=== PATIENT | female | born 1995 | race Caucasian/White ===

== ENCOUNTER 2019-11-23 09:02 | Outpatient (CLI) | payer OTHER, SELFPAY ==
[2019-11-23 09:43] LABS: Basophils # 0.1 10^3/uL (0.0-0.1); Basophils % 0.9 %; Eosinophils # 0.3 10^3/uL (0.0-0.8); Eosinophils % 5.9 %; Hematocrit 32.9 % (37.0-47.0); Hemoglobin 8.8 g/dL (11.5-15.3); Lymphocytes # 1.6 10^3/uL (0.8-4.8); Mean Corpuscular HGB Conc 26.7 g/dL (30.0-36.0); Mean Corpuscular Hemoglobin 17.2 pg (28.0-34.0); Mean Corpuscular Volume 64.3 fL (81-99); Monocytes # 0.4 10^3/uL (0.2-0.9); Monocytes % 6.5 %; Neutrophils # 3.45 10^3/uL (1.8-7.7); Neutrophils % 59.4 %; Nucleated Red Blood Cells % 0 %; Platelet Count 270 10^3/cmm (130-400); Red Blood Count 5.12 10^6/uL (4.1-5.3); Red Cell Distribution Width 17.9 % (12.1-15.1); White Blood Count 5.8 10^3/uL (4.0-10.0)
[2019-11-23 10:20] LABS: Add RBC Morph Yes; Slide Review Slide Review Perform
[2019-11-23 10:21] LABS: Poikilocytosis 2+
[2019-11-23 10:22] LABS: Anisocytosis 1+; Microcytosis 2+; Ovalocytes 2+; RBC Morph Comp Yes; Tear Drop Cells 1+
[2019-11-23 15:34] LABS: Ferritin 7 ng/mL (15-150); Iron 14 ug/dL (37-145); Total Iron Binding Capacity 348 mcg/dl; Unsaturated Iron Binding 334 ug/dL (112-347)
[2019-11-23 15:50] LABS: Vitamin B12 380 pg/mL (232-1245)
--- NOTE | 2019-11-23 17:43 | ONC CON_ITS ---
Dr. Hinojosa New Patient Note Patient: Salome Melendez Unit #: [id number]: 1995 Dicatated By: Sheldon Hinojosa M.D.Date of Visit: Nov 23, 2019 Onc MED New Patient/Consult Referring Physician: Lolis Ren History of Present Illness: Ms. Salome Melendez, is a 24-year-old female with longstanding history of anemia, as per patient when she was in 11th grade, she was diagnosed with sickle cell anemia at children's clinic in [facility] and she was started on oral iron ferrous sulfate twice a day, patient was also followed in hematology clinic in [facility]. Patient never received blood transfusion, no history of bone marrow evaluation. But patient has been taking oral iron since grade 11 and her hemoglobin usually stays between 7 to 8 g. 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 Also history of heavy menstrual periods, in the past she has used control pills without much success and she uses about 7-8 pads a day for 5 days or more. She also has a history of abnormal Pap smear in 2017 at that time underwent biopsy, now with a yearly follow-up She has 1 child born on 2018 and history of miscarriage. She denies smoking but drinks occasionally. Today denies any specific complaints, no melena or hematochezia but darker stools due to oral iron, no hemoptysis or hematemesis, no visual problems, no joint problems, no skin changes, no history of jaundice, no history of sickle cell crisis. But complaining of numbness and paresthesia involving lower extremity/feet. Denies any shortness of breath or palpitation, clinically appears she has well compensated mild/moderate anemia Past Medical History: Ms. Melendez's medical history is unremarkable. Past Surgical History: Ms. Toribios surgical/procedural history consists of cholecystectomy and dilation and curretage. Medications: Iron 1 Tablet Oral daily Allergies: pork Social History: Ms. Melendez is single and she is an unknown. Ms. Melendez has never smoked. She drinks occasionally. She consumes 2 drinks/day 1 day/week. Ms. Melendez reports the following support systems: lives alone, lives in own house, supportive family/friends willing to assist with needs, and adequate transportation available for expected visits. Her diet consists of regular meals. She indicates her activity level as: regular exercise. Family History: Ms. Melendez's mother is alive. Ms. Melendez's father is alive. PT STATES HER GREAT GRANDFATHER ON HER SIDE PAST AWAY FROM PLATELET CANCER. Review Of Symptoms: Constitutional - Appetite is fair and weight is stable. No fever, or hot flashes. Occasional night sweats. Energy level is fair, ENMT - Positive for sinus congestion/drainage. No mouth sores. Positive for sore throat, no difficulty swallowing, Hematologic/Lymphatic - Positive for easy bruising and frequent nosebleeds, Respiratory - No shortness of breath. No cough. No pleuritic pain or hemoptysis, Cardiovascular - No angina pain. No palpitations, Gastrointestinal - No nausea or vomiting. Positive for heartburn and acid reflux. No diarrhea or constipation. No blood in the stool or black stools, Genitourinary (F) - No dysuria or hematuria. No urinary frequency. No urgency or incontinence, Musculoskeletal - Positive for joint pain, Neurologic - Positive for headache and dizziness. No numbness or tingling. No other focal neurologic symptoms, Psychiatric - Positive for anxiety. Vital Signs: Performed on Nov 23, 2019 10:53: 0, 32.78 (HIGH), 1.82 sq.m, 62.00 in, 99 %, 82 /min, 18 /min, 137/106 mm(hg), 97.9 F (LOW), and 179.2 lbs (HIGH). Performance Status: 0 - Fully active, able to carry on all predisease activities without restrictions. (ECOG) Physical Examination: ENMT - No mouth sores, no thrush, no jaundice, Respiratory - Lungs are clear, Cardiovascular - Regular rate and rhythm of heart, Abdomen - Soft, bowel sounds present, Extremities - No visible edema or rash. Lab/Imaging: Most recent lab results are not available for this patient. Impression: Microcytic hypochromic anemia, diagnosed in 11th grade, as per patient she was diagnosed with with sickle cell anemia and was started on oral iron ferrous sulfate twice a day Splenomegaly and horseshoe kidney seen on CT scan of abdomen as per patient last scan was done in 2012 History of heavy menstrual periods, has seen [facility], tried control pills without much help History of abnormal Pap smear in 2017 status post biopsy now being followed on a yearly basis by [facility]. History of nosebleed off and on since 2010 Lower extremity/feet numbness. Plan: Discussed with patient regarding her labs white blood count 6.8, hemoglobin 8.8 hematocrit 32.9 platelets 270,000 MCV 64.3 Clinically, patient is doing well, she has well compensated microcytic hypochromic anemia, on oral iron since initially diagnosed when she was in 11th grade and tolerating well. As per patient she was diagnosed with sickle cell anemia at that time, which is very rare in unless they are from [place] or with interracial ancestry. We will obtain records from children's clinic and [facility]. In the meantime, patient was explained that other possibilities causing macrocytic anemia could be iron deficiency or thalassemia but less likely as she has no history of jaundice or hemolysis which is less common in thalassemia minor. Her iron studies were ordered and they were pending at the time of patient left clinic, reports came back shows patient has severe iron deficiency anemia while on oral iron for years, and because of iron deficiency anemia could be excessive blood loss due to heavy menstrual periods and or iron malabsorption. At this point, we will discontinue oral iron and consider parenteral iron Injectafer 750 mg IV weekly x2 and repeat CBC and iron studies after 1 month, if it shows normalization of hemoglobin with normalization of iron stores then no further work-up needed rather to manage heavy menstrual periods, as patient denies any history of melena or hematochezia or bleeding per rectum. On the other hand if with normalization of iron stores, she still has persistent microcytic anemia, then will consider hemoglobin electrophoresis to rule out coexistent hemoglobinopathy. As far as history of splenomegaly is concerned, etiology is unclear, we will obtain records from children's [facility] and review the scan reports, as per patient she is scheduled for follow-up abdominal sonogram on coming Thursday, will review the report. We will obtain approval from insurance prior to parenteral iron for iron deficiency anemia and that she return to clinic 1 month after second weekly dose of Injectafer with CBC and iron studies. Signed By: Sheldon Hinojosa M.D. <<Signature on File>>
== END 2019-11-23 09:03 | disposition home or self-care (01) ==
PROVIDERS: PCP Nurse Practitioner Family; Referring Provider Nurse Practitioner Family; Visit Provider Internal Medicine Hematology & Oncology
DX: D50.9 Iron deficiency anemia, unspecified (principal); N92.0 Excessive and frequent menstruation with regular cycle; R16.1 Splenomegaly, not elsewhere classified; R20.0 Anesthesia of skin
CPT/HCPCS: 82607; 82728; 83540; 83550; 85025; 99203

== ENCOUNTER 2019-12-07 13:59 | Outpatient (CLI) | payer OTHER, SELFPAY | END 2019-12-07 14:00 | disposition home or self-care (01) | LOC: ONCMED 14:01 | PROVIDERS: PCP Nurse Practitioner Family; Visit Provider Internal Medicine Hematology & Oncology | DX: D50.9 Iron deficiency anemia, unspecified (principal) | CPT/HCPCS: 96365 ==

== ENCOUNTER 2019-12-14 06:26 | Outpatient (CLI) | payer OTHER, SELFPAY ==
[2019-12-14] MEDS: ferric carboxy (IVPB) 750 MG in sodium chloride 0.9% (100 ml) 100 ML 460 MG IV (14:15)
== END 2019-12-14 06:27 | disposition home or self-care (01) ==
LOC: ONCMED 06:27
PROVIDERS: PCP Nurse Practitioner Family; Visit Provider Internal Medicine Hematology & Oncology
DX: D50.9 Iron deficiency anemia, unspecified (principal)
CPT/HCPCS: 96365; J1439

== ENCOUNTER 2020-01-06 18:11 | Emergency (ER) | payer MEDICAID, SELFPAY ==
[2020-01-06 18:26] VITALS: BP 134/64; PULSE 79; RESP 17; TEMP 37.1; O2SAT 100; BMI 31.8
--- NOTE | 2020-01-06 18:35 | USR_ITS ---
PROCEDURE INFORMATION: Exam: US , Transvaginal Exam date and time: 01/06/2020 8:12 PM Age: 24 years old Clinical indication: complicated by abdominal or pelvic pain; Right lower quadrant; First trimester; Gestational age or lmp: 6w5d; ; Prior surgery; Surgery date: 6+ months; Surgery type: D & c w/cone; Patient HX: ; Additional info: Preg 8 weeks, vaginal bleeding & cramping TECHNIQUE: Imaging protocol: Real-time transvaginal obstetrical ultrasound of the maternal pelvis and a first trimester with image documentation. Transvaginal imaging was used for better evaluation of the fetus and adnexa. COMPARISON: [place] [id number] 11/22/2018 12:17 AM FINDINGS: Transvaginal imaging of the pelvis was performed. There is an intrauterine gestational sac present. There is a yolk sac. There is a pole. The crown-rump length measured 0.74 cm. Estimated gestational age is 6 weeks 4 days. heart rate is 157 bpm. There is no evidence for subchorionic hemorrhage. The left ovary measured 1.7 by 1.9 x 1.3 cm. The right ovary measured 4.3 by 2.1 x 2.9 cm. A corpus luteum is present within the right ovary. No free fluid is seen within the pelvis. The cervix measures 3.1 cm in length and appeared closed. US/US OB <=14 wk fetus w transvag IMPRESSION: Single live intrauterine gestation approximately 6 weeks 4 days.
--- NOTE | 2020-01-06 18:39 | ED_ITS ---
HPI - General: Chief complaint: Vaginal Bleeding Stated complaint: 8 weeks - vaginal bleeding Time Seen by Provider: 01/06/20 18:35 Source: patient Mode of arrival: ambulatory Limitations: no limitations History of Present Illness: HPI Narrative: 24-year-old female comes in today with right lower abdominal cramping and some abnormal light vaginal bleeding. Patient denies any clots or other abnormal symptoms. Patient has been on amoxicillin for the last 5 days for possible urinary tract infection. Patient appears well. Patient appears in mild to no pain. Associated symptoms: Deny vaginal bleeding Review of Systems General: Reports: 10 or more systems reviewed and unremarkable except in HPI and below : Reports: vaginal bleeding (light) [facility] ED PFS: Medical History (Updated 01/06/20 @ 20:52 by ANGELA Solis) Asthma COOPER III (cervical intraepithelial neoplasia III) 05/2015: COOPER 3 - Treated by cervical cone (possibly LEEP) per patient. 11/20/2016: Patient reports having had a follow-up pap smear at approx 6 months after treatment. She is unsure of the results. Plan pap smear after delivery. Contraception management She was counseled regarding again missed AB and all treatment modalities. Was counseled hCG continue to decrease and she declined any bleeding. Patient elected expectant/conservative management. Quantitative hCG now negative. Patient refers she wants to start using OCPs. She was counseled regarding all methods of contraception. She wants to proceed start using OCPs she was counseled regarding starting OCPs. Follow-up in 3 months Patient denies medical problems Denies history of: high blood pressure, diabetes, heart, lung, liver, kidney, thyroid, bleeding problems, or clotting problems Surgical History (Updated 05/27/19 @ 13:17 by Марина Barkley RN) History of cholecystectomy (~2015) History of dilation and curettage (~05/2015) Performed at time of cervical cone per patient. Performed in [facility] Previous section (~04/2017) Family History (Updated 05/27/19 @ 13:21 by Марина Barkley RN) Grandmother Hyperlipidemia Maternal Hypertension Maternal Diabetes Maternal Breast cancer Maternal Grandfather Diabetes paternal Colon cancer Maternal Family/Other Breast cancer Paternal aunt, paternal cousin Patient denies medical problems Denies family history of: heart disease, stroke, thyroid problems, ovarian cancer, or uterine cancer Social History Smoking and tobacco status: never smoked Alcohol intake: never Physical Exam Const: COMMON NORMALS: no acute distress and patient oriented x3 GENERAL APPEARANCE: cooperative HENMT: COMMON NORMALS: normocephalic and Normal external nose present HEAD & SCALP: normal to inspection and normocephalic NOSE: Normal external nose present MOUTH: Normal oral and palatal mucosa present THROAT: posterior oropharynx normal Eye: GENERAL EYE: appearance normal, both eyes and all related structures Neck/C-Spine: COMMON NORMALS: full ROM Lymph: LYMPHATIC: no lymphadenopathy noted Chest: COMMONS NORMALS: normal inspection of the chest Resp: COMMON NORMALS: normal respiratory effort EFFORT & INSPECTION: Yes able to speak in complete sentences Cardio: COMMON NORMALS: regular rate and regular rhythm RATE: regular rate RHYTHM: regular rhythm GI: COMMON NORMALS: non-tender : COMMON NORMALS: Yes no CVA tenderness BLADDER/KIDNEY EXAM: Yes no CVA tenderness EXTERNAL FEMALE EXAM: Yes normal appearance of the urethra SPECULUM EXAM - VAGINA: No vaginal bleeding SPECULUM EXAM - CERVIX: Yes Cervical os closed OB/EXTERNAL & SPECULUM: No vaginal bleeding Back/Pelvis: COMMON NORMALS: no CVA tenderness and thoracic and lumbar spine normal to inspection Extremity: COMMON NORMALS: normal to inspection Neuro: COMMON NORMALS: patient oriented x3 and moves all extremities Psych: COMMON NORMALS: mental status grossly normal and cooperative Skin: COMMON NORMALS: no rashes or lesions noted GENERAL SKIN EXAM: no rashes or lesions noted Course Vital Signs: Vital signs: Vital Signs Temperature 98.2 F 01/06/20 21:00 Pulse Rate 95 01/06/20 21:00 Respiratory Rate 16 01/06/20 21:00 Blood Pressure 132/67 01/06/20 21:00 Pulse Oximetry 98 01/06/20 21:00 MDM - OB/Uterine Contractions MDM Narrative: Medical decision making narrative: Patient comes in today for complaints of some mild pink vaginal drainage for the last couple of days. Patient denies any significant bleeding. Patient does report some right lower abdominal cramping. Respirations are even lungs are clear to auscultation. Abdomen soft nontender. Vaginal exam noted no bleeding in a closed cervical os. No CVA tenderness. Differential diagnosis includes threatened miscarriage, urinary tract infection, PID. Laboratory values were normal. Outstanding labs include genital culture and gonorrhea chlamydia testing. Wet prep was negative. Ultrasound noted a viable at this time with a heart rate of 150s. hCG level was 35,000. Reviewed exam with patient with recommendations for follo w-up or return. Patient reported understanding and agreed to plan. Lab Data: Labs: Lab Results 01/06/20 01/06/20 01/06/20 Range/Units 18:59 18:59 18:59 WBC 8.0 (4.0-10.0) 10^3/ uL RBC 5.63 H (4.1-5.3) 10^6/u L Hgb 13.1 (11.5-15.3) g/dL Hct 42.0 (37.0-47.0) % MCV 74.6 L (81-99) fL MCH 23.3 L (28.0-34.0) pg MCHC 31.2 (30.0-36.0) g/dL RDW Not Reportable Plt Count 171 (130-400) 10^3/c mm MPV Not Reportable Neut % (Auto) 64.2 % Lymph % (Auto) 25.4 % [place] % (Auto) 6.7 % Eos % (Auto) 2.6 % Baso % (Auto) 0.8 % Neut # (Auto) 5.11 (1.8-7.7) 10^3/u L Lymph # (Auto) 2.0 (0.8-4.8) 10^3/u L [place] # (Auto) 0.5 (0.2-0.9) 10^3/u L Eos # (Auto) 0.2 (0.0-0.8) 10^3/u L Baso # (Auto) 0.1 (0.0-0.1) 10^3/u L Nucleated RBC % (a uto) 0 % Nucleated RBCs # 0.0 /100WBC PT 13.20 (12.1-14.9) SECO NDS INR 0.97 (0.8-1.2) APTT 33.3 (23.9-36.7) SECO NDS Sodium 138 (136-145) mmol/L Potassium 3.4 L (3.5-5.1) mmol/L Chloride 103 (98-107) mmol/L Carbon Dioxide 24 (22-29) mmol/L Anion Gap 14.4 (5-19) BUN 5 L (6-20) mg/dL Creatinine 0.6 (0.5-0.9) mg/dL GFR Calculation 121.8 (90-130) mL/min Glucose 93 (65-115) mg/dL Calculated Osmolal ity 281 L (285-295) mOsm/k g Calcium 9.2 (8.5-10.5) mg/dL Total Bilirubin 0.3 (0.15-1.2) mg/dL AST 21 (0-32) U/L ALT 27 (0-33) U/L Alkaline Phosphata se 76 (35-105) IU/L Total Protein 7.6 (6.6-8.7) g/dL Albumin 4.4 (3.5-5.2) g/dL Globulin 3.2 (1.3-4.6) g/dL Ser , Jose M i-Qnt mIU/mL Blood Type Rho(D) Type 01/06/20 01/06/20 Range/Units 18:59 18:59 WBC (4.0-10.0) 10^3/ uL RBC (4.1-5.3) 10^6/u L Hgb (11.5-15.3) g/dL Hct (37.0-47.0) % MCV (81-99) fL MCH (28.0-34.0) pg MCHC (30.0-36.0) g/dL RDW Plt Count (130-400) 10^3/c mm MPV Neut % (Auto) % Lymph % (Auto) % [place] % (Auto) % Eos % (Auto) % Baso % (Auto) % Neut # (Auto) (1.8-7.7) 10^3/u L Lymph # (Auto) (0.8-4.8) 10^3/u L [place] # (Auto) (0.2-0.9) 10^3/u L Eos # (Auto) (0.0-0.8) 10^3/u L Baso # (Auto) (0.0-0.1) 10^3/u L Nucleated RBC % (a uto) % Nucleated RBCs # /100WBC PT (12.1-14.9) SECO NDS INR (0.8-1.2) APTT (23.9-36.7) SECO NDS Sodium (136-145) mmol/L Potassium (3.5-5.1) mmol/L Chloride (98-107) mmol/L Carbon Dioxide (22-29) mmol/L Anion Gap (5-19) BUN (6-20) mg/dL Creatinine (0.5-0.9) mg/dL GFR Calculation (90-130) mL/min Glucose (65-115) mg/dL Calculated Osmolal ity (285-295) mOsm/k g Calcium (8.5-10.5) mg/dL Total Bilirubin (0.15-1.2) mg/dL AST (0-32) U/L ALT (0-33) U/L Alkaline Phosphata se (35-105) IU/L Total Protein (6.6-8.7) g/dL Albumin (3.5-5.2) g/dL Globulin (1.3-4.6) g/dL Ser , Jose M i-Qnt 06831.00 mIU/mL Blood Type A Negative Rho(D) Type Negative Discharge Plan Discharge Patient Disposition: Home Clinical Impression: Qualifiers: Weeks of gestation: less than 8 weeks Qualified Code(s): Z3A.01 - Less than 8 weeks gestation of Hematuria Qualifiers: Hematuria type: unspecified type Qualified Code(s): R31.9 - Hematuria, unspecified Condition: Stable Prescriptions: No Action No Known Home Medications RF: 0 Discharge Orders: Discharge Order (Routine); Ordered 01/06/20 Ordered By: Kristofer Julien Referrals: Anne Knight APN [Primary Care Provider] - Discharge Diet: Usual diet Discharge Activity: Increase activity as tolerated Patient Instructions: (ED) Activity Restrictions/Additional Instructions: Healthy diet. Drink plenty of fluids. Follow-up with primary care. Follow-up with [facility] for further treatment and evaluation. Return to the emergency room for increasing bleeding, uncontrolled pain, or high fever. Interventions: Last Done: 01/06/20 21:00 Last Done: 01/06/20 21:00 Discharge Date/Time: 01/06/20 21:00 Coding Level of Care Code ED Rack Worker for Chg Fwd Exam Comprehensive
[2020-01-06 18:58] VITALS: BP 124/97; PULSE 87; RESP 16; O2SAT 99
[2020-01-06 19:05] LABS: Basophils # 0.1 10^3/uL (0.0-0.1); Basophils % 0.8 %; Eosinophils # 0.2 10^3/uL (0.0-0.8); Eosinophils % 2.6 %; Hemoglobin 13.1 g/dL (11.5-15.3); Lymphocytes % 25.4 %; Mean Corpuscular HGB Conc 31.2 g/dL (30.0-36.0); Mean Corpuscular Hemoglobin 23.3 pg (28.0-34.0); Mean Corpuscular Volume 74.6 fL (81-99); Monocytes # 0.5 10^3/uL (0.2-0.9); Monocytes % 6.7 %; Neutrophils # 5.11 10^3/uL (1.8-7.7); Neutrophils % 64.2 %; Nucleated Red Blood Cells % 0 %; Platelet Count 171 10^3/cmm (130-400); Red Blood Count 5.63 10^6/uL (4.1-5.3)
[2020-01-06 19:15] LABS: INR 0.97 (0.8-1.2)
[2020-01-06 19:16] LABS: Partial Thromboplastin Time 33.3 SECONDS (23.9-36.7)
[2020-01-06 19:21] LABS: Alanine Aminotransferase 27 U/L (0-33); Albumin Level 4.4 g/dL (3.5-5.2); Alkaline Phosphatase 76 IU/L (35-105); Anion Gap 14.4 (5-19); Aspartate Amino Transferase 21 U/L (0-32); Blood Urea Nitrogen 5 mg/dL (6-20); Calcium 9.2 mg/dL (8.5-10.5); Carbon Dioxide 24 mmol/L (22-29); Chloride 103 mmol/L (98-107); Globulin 3.2 g/dL (1.3-4.6); Glomerular Filtration Rate 121.8 mL/min (90-130); Glucose 93 mg/dL (65-115); Osmolality Calculated 281 mOsm/kg (285-295); Potassium 3.4 mmol/L (3.5-5.1); Sodium 138 mmol/L (136-145); Total Bilirubin 0.3 mg/dL (0.15-1.2); Total Protein 7.6 g/dL (6.6-8.7)
[2020-01-06 19:32] VITALS: BP 126/59; PULSE 77; RESP 16; O2SAT 100
[2020-01-06 20:00] VITALS: BP 117/46; PULSE 78; RESP 16; O2SAT 100
[2020-01-06 20:37] LABS: Slide Review Slide Review Perform
[2020-01-06 21:00] VITALS: BP 132/67; PULSE 95; RESP 16; TEMP 36.8; O2SAT 98
== END 2020-01-06 21:00 | disposition home or self-care (01) ==
PROVIDERS: Emergency Provider Nurse Practitioner Family; Family Provider Nurse Practitioner Family; PCP Nurse Practitioner Family
DX: O26.891 Other specified pregnancy related conditions, first trimester (principal); R31.9 Hematuria, unspecified; Z3A.01 Less than 8 weeks gestation of pregnancy
CPT/HCPCS: 12345; 76801; 76817; 76830; 76857; 80053; 84702; 85025; 85610; 85730; 86900; 87070; 87205; 87210; 87491; 87591; 87661; 99283; E0352

== ENCOUNTER → 2020-01-13 09:12 | Outpatient (BNVA) | payer MEDICAID, SELFPAY | PROVIDERS: Family Provider Nurse Practitioner Family; PCP Nurse Practitioner Family; Visit Provider Nurse Practitioner Women's Health | DX: O99.019 Anemia complicating pregnancy, unspecified trimester (principal); D57.1 Sickle-cell disease without crisis | CPT/HCPCS: 80053; 81000 ==

== ENCOUNTER → 2020-01-24 08:54 | Outpatient (BNVA) | payer MEDICAID, SELFPAY | PROVIDERS: PCP Nurse Practitioner Family; Visit Provider Obstetrics & Gynecology | DX: Z34.90 Encounter for supervision of normal pregnancy, unspecified, unspecified trimester (principal) | CPT/HCPCS: 80053; 80307; 81000; 83036; 85027; 86592; 86762; 86803; 86850; 86900; 87340; 87806 ==

== ENCOUNTER → 2020-02-13 15:15 | Outpatient (BNVA) | payer MEDICAID, SELFPAY | PROVIDERS: PCP Nurse Practitioner Family; Visit Provider Obstetrics & Gynecology | DX: Z34.90 Encounter for supervision of normal pregnancy, unspecified, unspecified trimester (principal) | CPT/HCPCS: 80053; 81000; 87491; 87591 ==

== ENCOUNTER → 2020-03-01 15:17 | Outpatient (BNVA) | payer MEDICAID, SELFPAY | PROVIDERS: PCP Nurse Practitioner Family; Visit Provider Obstetrics & Gynecology | DX: D57.1 Sickle-cell disease without crisis (principal) | CPT/HCPCS: 85460; 86850 ==

== ENCOUNTER → 2020-03-06 10:02 | Outpatient (BNVA) | payer MEDICAID, SELFPAY | PROVIDERS: PCP Nurse Practitioner Family; Visit Provider Nurse Practitioner Women's Health | DX: Z34.91 Encounter for supervision of normal pregnancy, unspecified, first trimester (principal) | CPT/HCPCS: 80053; 81000 ==

== ENCOUNTER → 2020-03-07 15:18 | Outpatient (BNVA) | payer MEDICAID, SELFPAY | PROVIDERS: PCP Nurse Practitioner Family; Visit Provider Obstetrics & Gynecology | DX: Z34.90 Encounter for supervision of normal pregnancy, unspecified, unspecified trimester (principal) | CPT/HCPCS: 81000; 87210 ==

== ENCOUNTER 2020-03-25 21:02 | Emergency (ER) | payer OTHER, MEDICAID, SELFPAY ==
[2020-03-25 21:16] VITALS: BP 105/66; PULSE 93; RESP 14; TEMP 36.9; O2SAT 96; BMI 31.4
[2020-03-25 22:39] VITALS: BP 117/70; PULSE 86; RESP 14; O2SAT 99
--- NOTE | 2020-03-25 22:42 | W.ED.PREGNAN ---
HPI - General: Chief complaint: Vaginal Bleeding Stated complaint: 19 WKS PREG, BLEEDING Time Seen by Provider: 03/25/20 22:36 Source: patient Mode of arrival: ambulatory Limitations: no limitations History of Present Illness: HPI Narrative: 25-year-old female who is currently 19 weeks . States she has had bleeding and discharge throughout her . She states that she is concerned she is getting anemic as she has sickle cell anemia. She denies any bleeding today. She has had slight abdominal cramping. Denies any vomiting or diarrhea. Associated symptoms: Reports vaginal discharge; Deny abdominal pain, headache(s), nausea or vomiting Review of Systems Const: Denies: fever(s), chills, body aches or change in appetite Eyes: Denies: blurry vision or eye discomfort ENMT: Denies: throat pain or dental pain Card: Denies: chest pain Resp: Denies: dyspnea GI: Denies: abdominal pain, nausea, vomiting or diarrhea : Reports: vaginal bleeding and vaginal discharge Musc: Denies: neck pain or back pain Skin/Breast: Denies: rash Neuro: Denies: headache(s) Psych: Denies: depression Adebayo/Lymph: Denies: easy bruising All/Imm: Denies: urticaria PFSH ED PFSH: Medical History Asthma COOPER III (cervical intraepithelial neoplasia III) 05/2015: COOPER 3 - Treated by cervical cone (possibly LEEP) per patient. 11/20/2016: Patient reports having had a follow-up pap smear at approx 6 months after treatment. She is unsure of the results. Plan pap smear after delivery. Contraception management She was counseled regarding again missed AB and all treatment modalities. Was counseled hCG continue to decrease and she declined any bleeding. Patient elected expectant/conservative management. Quantitative hCG now negative. Patient refers she wants to start using OCPs. She was counseled regarding all methods of contraception. She wants to proceed start using OCPs she was counseled regarding starting OCPs. Follow-up in 3 months Patient denies medical problems Denies history of: high blood pressure, diabetes, heart, lung, liver, kidney, thyroid, bleeding problems, or clotting problems Sickle cell anemia (~2009) Surgical History History of cholecystectomy (~2015) History of dilation and curettage (~05/2015) Performed at time of cervical cone per patient. Performed in [facility] Previous section (~04/2017) Family History Grandmother Hyperlipidemia Maternal Hypertension Maternal Diabetes Maternal Breast cancer Maternal Grandfather Diabetes paternal Colon cancer Maternal Family/Other Breast cancer Paternal aunt, paternal cousin Patient denies medical problems Denies family history of: heart disease, stroke, thyroid problems, ovarian cancer, or uterine cancer Social History Additional social history: - Tobacco use: Denies Alcohol use: Denies Drug use: Denies Physical Exam Const: COMMON NORMALS: no acute distress, patient oriented x3 and healthy appearing HENMT: COMMON NORMALS: normocephalic and atraumatic HEAD & SCALP: normocephalic and atraumatic Eye: COMMON NORMALS: Equal, round and reactive pupils present and EOMs intact bilaterally PUPIL: Yes Equal, round and reactive pupils present Neck/C-Spine: COMMON NORMALS: full ROM and supple Chest: COMMONS NORMALS: normal inspection of the chest and normal palpation of entire chest wall Resp: COMMON NORMALS: normal respiratory effort, No retractions, No use of accessory muscles and clear to auscultation bilaterally AUSCULTATION: clear to auscultation bilaterally Cardio: COMMON NORMALS: regular rate, regular rhythm and No murmurs present (Cardio) RATE: regular rate RHYTHM: regular rhythm GI: COMMON NORMALS: Normal to inspection, nondistended, normoactive bowel sounds present, Soft to palpation, non-tender and no masses PALPATION: Yes Soft to palpation Extremity: COMMON NORMALS: normal to inspection and full ROM Neuro: COMMON NORMALS: patient oriented x3, moves all extremities and no focal motor deficits Psych: COMMON NORMALS: mental status grossly normal, Normal thought process present and cooperative THOUGHT PROCESS: Normal thought process present Skin: COMMON NORMALS: no rashes or lesions noted and no wounds GENERAL SKIN EXAM: no rashes or lesions noted Course Vital Signs: Vital signs: Vital Signs Temperature 98.5 F 03/25/20 21:16 Pulse Rate 86 11/29/20 22:39 Respiratory Rate 14 03/25/20 22:39 Blood Pressure 117/70 03/25/20 22:39 Pulse Oximetry 99 03/25/20 22:39 MDM - OB/Uterine Contractions MDM Narrative: Medical decision making narrative: Salome presents here with threatened miscarriage. She states she had a recent RhoGam shot has not had any bleeding today. She does have a urinary tract infection and will treat with Keflex and Rocephin. Bedside ultrasound here showed IUP consistent with dates heart rate of 148. Her hemoglobin level here is normal. She is to follow-up with OB and return if worsening. Lab Data: Labs: Lab Results 03/25/20 03/25/20 Range/Units 22:50 23:00 WBC 8.9 (4.0-10.0) 10^3/ uL RBC 4.83 (4.1-5.3) 10^6/u L Hgb 13.8 (11.5-15.3) g/dL Hct 40.9 (37.0-47.0) % MCV 84.7 (81-99) fL MCH 28.6 (28.0-34.0) pg MCHC 33.7 (30.0-36.0) g/dL RDW 14.3 (12.1-15.1) % Plt Count 183 (130-400) 10^3/c mm MPV 11.5 H (7.4-10.4) fL Neut % (Auto) 70.4 % Lymph % (Auto) 21.7 % [place] % (Auto) 4.8 % Eos % (Auto) 1.9 % Baso % (Auto) 0.5 % Neut # (Auto) 6.25 (1.8-7.7) 10^3/u L Lymph # (Auto) 1.9 (0.8-4.8) 10^3/u L [place] # (Auto) 0.4 (0.2-0.9) 10^3/u L Eos # (Auto) 0.2 (0.0-0.8) 10^3/u L Baso # (Auto) 0.0 (0.0-0.1) 10^3/u L Nucleated RBC % (a uto) 0 % Nucleated RBCs # 0.0 /100WBC Urine Color Yellow (Yellow) Urine Appearance Sl hazy (CLEAR) Urine pH 6 (5-7) Ur Specific Gravit y 1.020 (1.005-1.030) Urine Protein Neg (Negative) Urine Glucose (UA) Norm (Normal) Urine Ketones 2+ H (Negative) Urine Blood Neg (Negative) Urine Nitrate Negative (Negative) Urine Bilirubin Neg (Negative) Urine Urobilinogen 1 H (Negative) mg/dL Ur Leukocyte Leanna ase 2+ H (Negative) Amorphous Sediment Not Reportable Discharge Plan Discharge Patient Disposition: Home Clinical Impression: Threatened miscarriage Acute cystitis during Qualifiers: Trimester: second trimester Qualified Code(s): O23.12 - Infections of bladder in , second trimester Condition: Stable Prescriptions: New Keflex 500 mg capsule 500 mg PO Q6H 7 Days Qty: 28 RF: 0 No Action Gummies 400 mcg-35 mg- 25 mg-5 mg tablet,chewable 2 tab PO DAILY RF: 0 fluconazole [Diflucan] 150 mg tablet 150 mg PO DAILY Qty: 1 RF: 0 Discharge Orders: Discharge Order (Routine); Ordered 03/25/20 Ordered By: Michael Barros Referrals: Anne Knight APN [Primary Care Provider] - Discharge Diet: Advance as tolerated Discharge Activity: Resume usual activity Coding Level of Care Code ED Supervisor Inspection Department for Chg Fwd Exam Comprehensive
[2020-03-25 23:04] LABS: Basophils % 0.5 %; Eosinophils # 0.2 10^3/uL (0.0-0.8); Eosinophils % 1.9 %; Hematocrit 40.9 % (37.0-47.0); Hemoglobin 13.8 g/dL (11.5-15.3); Lymphocytes # 1.9 10^3/uL (0.8-4.8); Lymphocytes % 21.7 %; Mean Corpuscular HGB Conc 33.7 g/dL (30.0-36.0); Mean Corpuscular Hemoglobin 28.6 pg (28.0-34.0); Mean Corpuscular Volume 84.7 fL (81-99); Mean Platelet Volume 11.5 fL (7.4-10.4); Monocytes # 0.4 10^3/uL (0.2-0.9); Monocytes % 4.8 %; Neutrophils # 6.25 10^3/uL (1.8-7.7); Neutrophils % 70.4 %; Nucleated Red Blood Cells % 0 %; Platelet Count 183 10^3/cmm (130-400); Red Blood Count 4.83 10^6/uL (4.1-5.3); Red Cell Distribution Width 14.3 % (12.1-15.1); White Blood Count 8.9 10^3/uL (4.0-10.0)
[2020-03-25 23:09] LABS: Glucose Urine UA Norm (Normal); Ketones Urine 2+ (Negative); Protein Urine Neg (Negative); Urine Appearance SL Hazy (CLEAR); Urine Color Yellow (Yellow); pH Urine 6 (5-7)
[2020-03-25 23:10] LABS: Add Urine Microscopic? YES; Bilirubin Urine Neg (Negative); Blood Urine Neg (Negative); Leukocyte Esterase Urine 2+ (Negative); Nitrate Urine Negative (Negative); Urobilinogen Urine 1 mg/dL (Negative)
[2020-03-25] MEDS: cefTRIAXone 1,000 MG in sodium chloride 0.9% (plus) 50 ML 100 MG IV (23:19)
[2020-03-25] MEDS: sodium chloride 0.9% 500 ML 999 ML IV (23:19)
[2020-03-25 23:31] LABS: Add Urine Culture? No; Bacteria Urine 2+ /hpf; RBC Urine 0-4 /hpf (0-2); Squamous Epithelial Cell Urine 80-100 /hpf (0-5); WBC Urine 40-55 /hpf (0-5)
[2020-03-25 23:45] VITALS: BP 116/74; PULSE 83; RESP 18; O2SAT 100
== END 2020-03-25 23:47 | disposition home or self-care (01) ==
PROVIDERS: Emergency Provider Emergency Medicine; PCP Nurse Practitioner Family
DX: O20.0 Threatened abortion (principal); Z3A.19 19 weeks gestation of pregnancy; O23.12 Infections of bladder in pregnancy, second trimester
CPT/HCPCS: 12345; 80500; 81001; 85025; 86850; 86870; 86900; 96365; 99282; 99283; J0696; J7040

== ENCOUNTER → 2020-04-06 13:06 | Outpatient (BNVA) | payer OTHER, MEDICAID, SELFPAY | PROVIDERS: PCP Nurse Practitioner Family; Visit Provider Obstetrics & Gynecology | DX: Z34.91 Encounter for supervision of normal pregnancy, unspecified, first trimester (principal) | CPT/HCPCS: 84315; 87086 ==

== ENCOUNTER 2020-05-02 13:52 | Outpatient (CLI) | payer BC, SELFPAY ==
[2020-05-02] VITALS (20 sets, daily range): BP systolic 90–128; BP diastolic 51–74; PULSE 77–115; TEMP 36.6; O2SAT 98–100; BMI 31.2
[2020-05-02 15:01] LABS: Bilirubin Urine Neg (Negative); Blood Urine Neg (Negative); Glucose Urine UA Norm (Normal); Ketones Urine 1+ (Negative); Leukocyte Esterase Urine 1+ (Negative); Nitrate Urine Negative (Negative); Protein Urine Neg (Negative); Specific Gravity, Urine 1.025 (1.005-1.030); Urine Appearance Hazy (CLEAR); Urine Color Yellow (Yellow); Urobilinogen Urine Norm (Negative); pH Urine 6 (5-7)
[2020-05-02 15:08] LABS: RBC Urine 0-4 /hpf (0-2); WBC Urine 15-25 /hpf (0-5)
[2020-05-02 15:09] LABS: Add Urine Culture? No; Bacteria Urine 2+ /hpf; Squamous Epithelial Cell Urine 40-55 /hpf (0-5)
[2020-05-02] MEDS: lactated ringers 1,000 ML 999 ML IV (16:40)
[2020-05-02] MEDS: terbutaline 1 mg/mL INJ 0.25 MG SUBCUT (18:09)
== END 2020-05-02 19:18 | disposition home or self-care (01) ==
LOC: OPOB 13:53 → OBGYN 13:54
PROVIDERS: Obstetrics & Gynecology; PCP Nurse Practitioner Family; Visit Provider Obstetrics & Gynecology
DX: O26.899 Other specified pregnancy related conditions, unspecified trimester (principal); Z3A.00 Weeks of gestation of pregnancy not specified; R10.9 Unspecified abdominal pain
CPT/HCPCS: 59025; 81001; 87086; 96360; 96372; 99211; J3105

== ENCOUNTER → 2020-05-04 15:14 | Outpatient (BNVA) | payer BC, MEDICAID, SELFPAY | PROVIDERS: PCP Nurse Practitioner Family; Visit Provider Obstetrics & Gynecology | DX: Z34.80 Encounter for supervision of other normal pregnancy, unspecified trimester (principal) | CPT/HCPCS: 82950; 84315 ==

== ENCOUNTER 2020-05-15 18:47 | Outpatient (CLI) | payer BC, MEDICAID, SELFPAY ==
[2020-05-15] VITALS (14 sets, daily range): BP systolic 97–113; BP diastolic 50–66; PULSE 77–93; RESP 16; TEMP 36.2–36.3; O2SAT 97–98; BMI 32.0
[2020-05-15] MEDS: sodium chloride 0.9% 1,000 ML 999 ML IV (19:58)
[2020-05-15 20:03] LABS: Bilirubin Urine Neg (Negative); Blood Urine Neg (Negative); Glucose Urine UA Norm (Normal); Ketones Urine Negative (Negative); Leukocyte Esterase Urine Negative (Negative); Nitrate Urine Negative (Negative); Protein Urine Neg (Negative); Specific Gravity, Urine 1.025 (1.005-1.030); Urine Appearance Clear (CLEAR); Urine Color Yellow (Yellow); Urobilinogen Urine Norm (Negative)
[2020-05-15 20:08] LABS: Bacteria Urine 2+ /hpf; Mucus Urine 2+ /hpf; RBC Urine 0-4 /hpf (0-2); Squamous Epithelial Cell Urine 25-40 /hpf (0-5)
[2020-05-15 20:09] LABS: Add Urine Culture? No
[2020-05-15 20:38] LABS: Alanine Aminotransferase 13 U/L (0-33); Albumin Level 3.4 g/dL (3.5-5.2); Alkaline Phosphatase 101 IU/L (35-105); Anion Gap 13.3 (5-19); Aspartate Amino Transferase 14 U/L (0-32); Blood Urea Nitrogen 4 mg/dL (6-20); Calcium 9.1 mg/dL (8.5-10.5); Carbon Dioxide 23 mmol/L (22-29); Chloride 103 mmol/L (98-107); Globulin 2.9 g/dL (1.3-4.6); Glomerular Filtration Rate 192.9 mL/min (90-130); Glucose 115 mg/dL (65-115); Osmolality Calculated 280 mOsm/kg (285-295); Potassium 3.3 mmol/L (3.5-5.1); Sodium 136 mmol/L (136-145); Total Bilirubin 0.4 mg/dL (0.15-1.2); Total Protein 6.3 g/dL (6.6-8.7)
[2020-05-15] MEDS: promethazine 25 mg/mL SDV 1 mL IM (21:20)
== END 2020-05-15 21:30 | disposition home or self-care (01) ==
LOC: OPOB 18:48 → OBGYN 18:51
PROVIDERS: PCP Nurse Practitioner Family; Visit Provider Obstetrics & Gynecology
DX: O26.899 Other specified pregnancy related conditions, unspecified trimester (principal); Z3A.00 Weeks of gestation of pregnancy not specified; R10.9 Unspecified abdominal pain
CPT/HCPCS: 36415; 59025; 80053; 81001; 96360; 96372; 99211; J2550; J7030

== ENCOUNTER → 2020-05-28 15:52 | Outpatient (BNVA) | payer BC, MEDICAID, SELFPAY | PROVIDERS: PCP Nurse Practitioner Family; Visit Provider Obstetrics & Gynecology | DX: O09.899 Supervision of other high risk pregnancies, unspecified trimester (principal); O99.012 Anemia complicating pregnancy, second trimester; D57.1 Sickle-cell disease without crisis; O26.899 Other specified pregnancy related conditions, unspecified trimester; Z67.91 Unspecified blood type, Rh negative | CPT/HCPCS: 81000; 85025; 86850; 87086 ==

== ENCOUNTER → 2020-06-18 08:44 | Outpatient (BNVA) | payer BC, MEDICAID, SELFPAY | PROVIDERS: PCP Nurse Practitioner Family; Visit Provider Obstetrics & Gynecology | DX: O99.012 Anemia complicating pregnancy, second trimester; D57.1 Sickle-cell disease without crisis; Z3A.00 Weeks of gestation of pregnancy not specified | CPT/HCPCS: 81000; 82951; 82952 ==

== ENCOUNTER → 2020-06-26 12:59 | Outpatient (BNVA) | payer BC, MEDICAID, SELFPAY | PROVIDERS: PCP Nurse Practitioner Family; Visit Provider Obstetrics & Gynecology | DX: O09.899 Supervision of other high risk pregnancies, unspecified trimester (principal); Z3A.00 Weeks of gestation of pregnancy not specified | CPT/HCPCS: 81000; 87086 ==

== ENCOUNTER 2020-07-08 17:24 | Observation (INO) | payer BC, MEDICAID, SELFPAY ==
[2020-07-08 17:30] VITALS: BMI 32.9
[2020-07-08 17:39] VITALS: BP 118/74; PULSE 102
[2020-07-08 17:58] VITALS: TEMP 36.1; TEMP 36.2
[2020-07-08 17:59] VITALS: BP 117/67; PULSE 93
[2020-07-08 18:19] VITALS: BP 115/65; PULSE 100
[2020-07-08 18:35] LABS: Bilirubin Urine Neg (Negative); Blood Urine Neg (Negative); Glucose Urine UA Norm (Normal); Ketones Urine Negative (Negative); Leukocyte Esterase Urine Negative (Negative); Nitrate Urine Negative (Negative); Protein Urine Neg (Negative); Specific Gravity, Urine 1.025 (1.005-1.030); Urine Appearance SL Hazy (CLEAR); Urine Color Yellow (Yellow); Urobilinogen Urine Norm (Negative); pH Urine 5 (5-7)
[2020-07-08 18:36] LABS: Bacteria Urine 2+ /hpf; Mucus Urine 2+ /hpf; Squamous Epithelial Cell Urine 40-55 /hpf (0-5)
[2020-07-08 18:37] LABS: Add Urine Culture? No
[2020-07-08 18:39] VITALS: BP 108/65; PULSE 100
[2020-07-08 19:19] VITALS: BP 108/65; PULSE 100; RESP 18; TEMP 36.2
== END 2020-07-08 18:55 | disposition home or self-care (01) ==
PROVIDERS: Admitting Provider Obstetrics & Gynecology; PCP Nurse Practitioner Family; Visit Provider Obstetrics & Gynecology
DX: O26.899 Other specified pregnancy related conditions, unspecified trimester (principal); Z3A.00 Weeks of gestation of pregnancy not specified; R10.9 Unspecified abdominal pain; M54.9 Dorsalgia, unspecified
CPT/HCPCS: 81001; 99211; G0378; G0379

== ENCOUNTER → 2020-07-10 14:34 | Outpatient (BNVA) | payer BC, MEDICAID, SELFPAY | PROVIDERS: PCP Nurse Practitioner Family; Visit Provider Nurse Practitioner Women's Health | DX: O26.893 Other specified pregnancy related conditions, third trimester (principal); D57.1 Sickle-cell disease without crisis; Z67.91 Unspecified blood type, Rh negative; Z3A.00 Weeks of gestation of pregnancy not specified | CPT/HCPCS: 81000; 87086 ==

== ENCOUNTER → 2020-07-24 11:15 | Outpatient (BNVA) | payer BC, MEDICAID, SELFPAY | PROVIDERS: PCP Nurse Practitioner Family; Visit Provider Obstetrics & Gynecology | DX: O09.899 Supervision of other high risk pregnancies, unspecified trimester (principal); O23.43 Unspecified infection of urinary tract in pregnancy, third trimester; O34.219 Maternal care for unspecified type scar from previous cesarean delivery | CPT/HCPCS: 81000; 87081 ==

== ENCOUNTER → 2020-07-30 10:50 | Outpatient (BNVA) | payer BC, MEDICAID, SELFPAY | PROVIDERS: PCP Nurse Practitioner Family; Visit Provider Obstetrics & Gynecology | DX: O09.899 Supervision of other high risk pregnancies, unspecified trimester (principal); D57.1 Sickle-cell disease without crisis; O99.013 Anemia complicating pregnancy, third trimester; O26.893 Other specified pregnancy related conditions, third trimester; Z67.91 Unspecified blood type, Rh negative; Z3A.00 Weeks of gestation of pregnancy not specified | CPT/HCPCS: 81000; 87086 ==

== ENCOUNTER 2020-08-02 15:03 | Outpatient (CLI) | payer BC, MEDICAID, SELFPAY ==
[2020-08-02] VITALS (9 sets, daily range): BP systolic 106–120; BP diastolic 56–70; PULSE 85–101; RESP 17; TEMP 36.4; BMI 34.5
== END 2020-08-02 17:05 | disposition home or self-care (01) ==
LOC: OPOB 15:11 → OBGYN 16:56
PROVIDERS: PCP Nurse Practitioner Family; Visit Provider Obstetrics & Gynecology
DX: O36.8190 Decreased fetal movements, unspecified trimester, not applicable or unspecified (principal); Z3A.00 Weeks of gestation of pregnancy not specified
CPT/HCPCS: 59025; 99211

== ENCOUNTER → 2020-08-06 12:55 | Outpatient (BNVA) | payer BC, MEDICAID, SELFPAY | PROVIDERS: PCP Nurse Practitioner Family; Visit Provider Obstetrics & Gynecology | DX: O09.899 Supervision of other high risk pregnancies, unspecified trimester (principal) | CPT/HCPCS: 81000 ==

== ENCOUNTER → 2020-08-07 16:23 | Outpatient (BNVA) | payer BC, MEDICAID, SELFPAY | PROVIDERS: PCP Nurse Practitioner Family; Visit Provider Obstetrics & Gynecology | DX: O34.219 Maternal care for unspecified type scar from previous cesarean delivery (principal); O09.899 Supervision of other high risk pregnancies, unspecified trimester | CPT/HCPCS: 87635 ==

== ENCOUNTER 2020-08-13 04:57 | Inpatient (IN) | payer BC, MEDICAID, SELFPAY ==
--- NOTE | 2020-07-30 13:42 | ANES.PREANE2 ---
Pre-Anesthetic Assessment Pre-Anesthetic Assessment: Height/Weight: Height 1.57 m Preop Diagnosis: IUP Proposed Procedure: Operation Date: 08/13/20 07:00 Proposed Procedures p Section Repeat 46164 O09.899 O34.219(Not Applicable) - Rashaad Villalpando MD Familial anesthetic complications: None Was Beta Terrie taken within 24 hours: N/A Was Clonidine taken within 24 hours: N/A Social: Social History: No alcohol and No tobacco Exam: Pre-Anes Outpt Exam: alert, oriented x 3, clear to auscultation bilaterally and regular rate & rhythm Airway: Cervical ROM: WNL Dentition: Full Pulmonary: Pulmonary: Asthma Metabolic: Comments: sickle cell anemia - did fine with previous , getting iron infusions, emergency to small pelvis Anesthetic Plan: ASA status: 3 Anesthesia: Regional (specify below) () Risk of > 500 ml blood loss (7ml/kg in children): No Other Pertinent Information: Patient denies any hx of acute chest crisis or pain crisises, only at age 15 received 2 units prbcs in [facility]. None since [facility] Anesthesia PFSH: Medical History Asthma COOPER III (cervical intraepithelial neoplasia III) 05/2015: COOPER 3 - Treated by cervical cone (possibly LEEP) per patient. 11/20/2016: Patient reports having had a follow-up pap smear at approx 6 months after treatment. She is unsure of the results. Plan pap smear after delivery. Contraception management She was counseled regarding again missed AB and all treatment modalities. Was counseled hCG continue to decrease and she declined any bleeding. Patient elected expectant/conservative management. Quantitative hCG now negative. Patient refers she wants to start using OCPs. She was counseled regarding all methods of contraception. She wants to proceed start using OCPs she was counseled regarding starting OCPs. Follow-up in 3 months Patient denies medical problems Denies history of: high blood pressure, diabetes, heart, lung, liver, kidney, thyroid, bleeding problems, or clotting problems Sickle cell anemia (~2009) Surgical History History of cholecystectomy (~2015) History of dilation and curettage (~05/2015) Performed at time of cervical cone per patient. Performed in [facility] Previous section (~04/2017) Family History Grandmother Hyperlipidemia Maternal Hypertension Maternal Diabetes Maternal Breast cancer Maternal Grandfather Diabetes paternal Colon cancer Maternal Family/Other Breast cancer Paternal aunt, paternal cousin Patient denies medical problems Denies family history of: heart disease, stroke, thyroid problems, ovarian cancer, or uterine cancer Social History Additional social history: - Tobacco use: Denies Alcohol use: Denies Drug use: Denies Data Anesthesia Cardiac Studies: No Data to Display
[2020-08-13] VITALS (22 sets, daily range): BP systolic 101–128; BP diastolic 56–78; PULSE 53–95; RESP 16–18; TEMP 36.3–36.8; O2SAT 97–100; BMI 34.0
[2020-08-13] MEDS: lactated ringers 1,000 ML 999 ML IV (05:40)
[2020-08-13 05:47] LABS: Basophils # 0.1 10^3/uL (0.0-0.1); Basophils % 0.7 %; Eosinophils # 0.3 10^3/uL (0.0-0.8); Eosinophils % 3.2 %; Hematocrit 37.5 % (37.0-47.0); Hemoglobin 12.3 g/dL (11.5-15.3); Lymphocytes # 1.9 10^3/uL (0.8-4.8); Lymphocytes % 20.8 %; Mean Corpuscular HGB Conc 32.8 g/dL (30.0-36.0); Mean Corpuscular Hemoglobin 25.9 pg (28.0-34.0); Mean Corpuscular Volume 79.1 fL (81-99); Monocytes # 0.6 10^3/uL (0.2-0.9); Neutrophils # 6.13 10^3/uL (1.8-7.7); Neutrophils % 66.5 %; Nucleated Red Blood Cells % 0 %; Platelet Count 138 10^3/cmm (130-400); Red Blood Count 4.74 10^6/uL (4.1-5.3); Red Cell Distribution Width 14.1 % (12.1-15.1); White Blood Count 9.2 10^3/uL (4.0-10.0)
[2020-08-13] MEDS: citric acid-sodium citrate 30 mL UDC PO (06:38)
[2020-08-13] MEDS: metoclopramide 5 mg/mL SDV 2 mL 10 MG IVP (06:39)
[2020-08-13] MEDS: famotidine 20 mg/2 mL INJ IVP (06:39)
[2020-08-13] MEDS: lactated ringers 1,000 ML 125 ML IV (06:56)
--- NOTE | 2020-08-13 08:18 | PM.OP ---
Operative Report Date of procedure: August 13, 2020 Pre-op Diagnosis: IUPAt 39 weeks, previous delivery Post-op diagnosis: same Post-op Findings: Adhesions, viable girl, Apgars 8/8, weight 3040 g Procedure Done: Repeat delivery Pathology: none sent Surgeon: Rashaad Villalpando MD Anesthesia: Nerve Block (Spinal) Estimated blood loss (mL): 500 IV fluids (mL): 1,300 Urine output (mL): 100 Complications: None Condition: stable Disposition: observation Brief History: Ms. Melendez is a 25 year old, 3, Para 1-0-1-1, with LMP of 11/13/2019 and a ZOFIA of 08/19/2020 with an estimated gestational age of 39 weeks with previous delivery Procedure: After assuring informed consent, the patient was taken to the operating room and anesthesia was initiated. She was placed in the dorsal supine position with a left lateral tilt. The abdomen was prepped and draped in the usual sterile manner. A time-out procedure was performed. A Pfannenstiel skin incision was made with the scalpel and carried through to the underlying layer of fascia with the Bovie. The fascia was nicked in the midline and the incision extended laterally with the Haskins scissors. The superior aspect of the fascial incision was then grasped with Ankit clamps and elevated and the underlying rectus muscle dissected off bluntly and sharp with haskins scissors dense adhesions. Attention was then turned to the inferior aspect of the incision which, in similar fashion, was grasped and tented up with Ankit clamps and the rectus muscle dissected bluntly. The rectus muscles were then in the midline and the peritoneum identified, tented up and entered sharply with Metzenbaum scissors. The peritoneal incision was then extended superiorly and inferiorly with good visualization of the bladder. The William O retractor was then inserted and the vesicouterine peritoneum identified, grasped with pickups and entered sharply with Metzenbaum scissors. This incision was then extended laterally and the bladder flap created digitally. Then the uterus incised in a low transverse fashion with the scalpel. The uterine incision was then extended with the bandage scissors. The infant was then delivered in the cephalic presentation atraumatically at 0736 hours. The nose and the mouth were suctioned with bulb and the cord clamped and cut. Deliver a female viable infant at 39 weeks Apgars 8/8 with a weight of 3040 g. The cord was normal and had three vessels. Amniotic fluid was clear. The placenta was then removed manually and the uterus exteriorized and cleared of all clots and debris. The uterine incision was repaired with 0 Vicryl in a running-locked fashion. A second layer of the same suture was used to obtain excellent hemostasis. The gutters were cleared of all clots. The left fallopian tube was identified and grasped with a Leonor clamp. The tube was then followed out to the fimbria. An avascular midsection of the fallopian tube was grasped with a Leonor clamp and brought into a knuckle. The tube was doubly ligated with an O-plain suture and transected. The specimen was sent to pathology. Excellent hemostasis was noted. The same procedure was performed on the opposite fallopian tube. The uterus was then returned to the abdomen. The rectus muscles were approximated with 3-0 chromic gut. The fascia was reapproximated with 0 Vicryl in an interrupted running fashion. The skin was closed with Insorb?s subcuticular absorbable nancy. The Exparel was infused on incision site for pains management. The patient tolerated the procedure well. The sponge, lap and needle counts were correct times three. The patient was given Ancef 2 gm intravenously given.
--- NOTE | 2020-08-13 08:55 | PC.NURSE ---
pt moved to OB8 from OR via bed. oriented to room/call light. routine c/s post op instructions discussed, pt aware nothing to eat/drink unless cleared by RN, only get up out of bed with RN assistance. bottle feeding and I&O sheet discussed.
[2020-08-13] MEDS: ketorolac 30 mg/mL INJ IVP ×3 (10:00→21:15)
[2020-08-13] MEDS: dextrose 5%-lactated ringers 1,000 ML 125 ML IV ×2 (11:33→17:37)
--- NOTE | 2020-08-13 14:16 | PC.NURSE ---
pt up to stand at side of bed. skyler care performed. pt to chair without difficulty. sitting up in chair holding baby at this time. apple juice and ice water provided, call light in reach. encouraged pt to sit up about 1 hour or as long as desired.
--- NOTE | 2020-08-13 16:53 | PC.NURSE ---
pt up to bathroom, skyler care performed. Gown, underwear and pad changed. Pt then ambulated x2 laps around nurses station without difficulty. Pt back to room and sitting up in chair. Clear liquids provided.
[2020-08-13] MEDS: docusate sodium 100 mg Capsule PO (17:37)
--- NOTE | 2020-08-13 18:20 | PC.NURSE ---
ambulated x2 laps around unit. tolerated well
[2020-08-13 20:32] LABS: Hematocrit 34.8 % (37.0-47.0); Mean Corpuscular HGB Conc 31.6 g/dL (30.0-36.0); Mean Corpuscular Hemoglobin 25.7 pg (28.0-34.0); Mean Corpuscular Volume 81.3 fL (81-99); Mean Platelet Volume 12.6 fL (7.4-10.4); Platelet Count 117 10^3/cmm (130-400); Red Blood Count 4.28 10^6/uL (4.1-5.3); Red Cell Distribution Width 14.3 % (12.1-15.1); White Blood Count 8.5 10^3/uL (4.0-10.0)
[2020-08-14] MEDS: ketorolac 30 mg/mL INJ IVP (03:43)
[2020-08-14 03:50] VITALS: BP 111/65; PULSE 86; RESP 16; TEMP 36.8
[2020-08-14 08:59] VITALS: BP 118/77; PULSE 98; RESP 18; TEMP 36.9
[2020-08-14] MEDS: docusate sodium 100 mg Capsule PO (09:06)
[2020-08-14] MEDS: prenatal vitamin Capsule 1 CAP PO (09:07)
[2020-08-14] MEDS: HYDROcodone-acetaminophen 5-325 mg Tablet PO ×2 (09:09→17:23)
[2020-08-14 09:15] VITALS: BP 118/77; PULSE 98; TEMP 36.9
--- NOTE | 2020-08-14 09:27 | P.PN_ITS ---
Subjective Subjective: Interval history: 25-year-old female status post repeat delivery postoperative day 1. Refers no pain, ambulating without problems and passing flatus Vitals/I&O/Wt Last Vital Signs Temp 98.4 F 08/14/20 09:15 Pulse 98 08/14/20 09:15 Resp 18 08/14/20 08:59 BP 118/77 08/14/20 09:15 Pulse Ox 97 08/13/20 11:15 08/13/20 08/14/20 08/14/20 22:59 06:59 14:59 Intake Total 1700 / 4050 0 / 0 Output Total 950 / 2080 850 / 2930 Balance 750 / 1970 -850 / 1120 0 / 0 Weight last 48 hrs Weight 84.368 kg Physical Exam Narrative: EXAM NARRATIVE: GA: Alert and oriented ?3. HEENT: WNL. Heart: Regular rate and rhythm. Lungs: Clear to auscultation bilaterally. Breasts: engorged Nipples - skin intact Abdomen: Bowel sounds present, minimal tenderness, incision clean and dry, no redness, pain or edema. Uterine fundus below umbilicus. No Fundal Tenderness. TALENT MANAGEMENT SPECIALIST: Perineum: normal lochia. Extremities: No edema, no cyanosis, no calves pain. Urinary Catheter Management^: Garibay: Cath Placed During This Visit: yes, but has since been removed by the nurse Reason for Continuing Indwelling Catheter: Required Immobilization for Trauma or Surgery or Anesthesia Urinary Catheter Date of Insertion: 08/13/20 Urinary Catheter Time of Insertion: 07:15 Date Urinary Catheter Removed: 08/13/20 Time Urinary Catheter Discontinued: 23:50 Data : 08/13/20 20:25 A&P Assessment and plan (1) Term delivered: Mrs. Melendez is status post repeat delivery postoperative day 1. She is afebrile and hemodynamically stable. Pain well than control. Tolerating diet well. Ambulating without difficulty. Passing flatus. Status: Acute Attestations Medical Necessity Statement*: In my professional opinion per admitting diagnosis Coding Level of Care Code Acute Police [employer]inct for Chg Fwd Diagnoses Term delivered O80
[2020-08-14 10:41] VITALS: BP 137/83; PULSE 75; RESP 14; TEMP 36.8
[2020-08-14] MEDS: ibuprofen 800 mg tablet PO (15:34)
[2020-08-14] MEDS: simethicone 80 mg Chew PO (15:36)
[2020-08-14 15:39] VITALS: BP 111/74; PULSE 92; RESP 16; TEMP 36.4
--- NOTE | 2020-08-14 16:50 | PM.OBGYDC ---
Discharge Providers ELECTRONIC GAME DEVELOPER Date of Admission: 08/13/20 04:57 Date of Discharge: 08/14/20 Attending Provider at Admission: Rashaad Villalpando MD Attending Provider at Discharge: Rashaad Villalpando MD Primary Care Provider: Anne Knight APN Diagnoses at Discharge Discharge Diagnosis (1) Term delivered: Status: Acute Reason for Visit Reason for Visit: due date 08/13/20 repeat csection Hospital Course Hospital Course Mrs. Melendez 25-year-old female 3, Para 1-0-1-1, with LMP of 11/13/2019 and a ZOFIA of 08/19/2020 based on 6 week ultrasound with an estimated gestational age at 39 weeks and previous delivery. Was admitted for planned repeat delivery. The procedure was performed without complications. She delivered a term infant viable female Apgars 8/ 8 with a weight of 3040 g. Postop observation has been uneventful. Urine output adequate. Tolerating diet well. Passing flatus. Ambulating without difficulty. She is afebrile and hemodynamically stable. Information Peripartum Data: Delivery Method: Physical Exam Narrative: EXAM NARRATIVE: EXAM NARRATIVE: GA: Alert and oriented ?3. HEENT: WNL. Heart: Regular rate and rhythm. Lungs: Clear to auscultation bilaterally. Breasts: engorged Nipples - skin intact Abdomen: Bowel sounds present, minimal tenderness, incision clean and dry, no redness, pain or edema. Uterine fundus below umbilicus. No Fundal Tenderness. OTR OWNER OPERATOR TRUCK DRIVER: Perineum: normal lochia. Extremities: No edema, no cyanosis, no calves pain Urinary Catheter Management^: Garibay: Cath Placed During This Visit: yes, but has since been removed by the nurse Reason for Continuing Indwelling Catheter: Required Immobilization for Trauma or Surgery or Anesthesia Urinary Catheter Date of Insertion: 08/13/20 Urinary Catheter Time of Insertion: 07:15 Date Urinary Catheter Removed: 08/13/20 Time Urinary Catheter Discontinued: 23:50 Discharge Data Data Completed and Pending: Labs from last 24 hours 08/13/20 08/13/20 08/13/20 20:25 20:25 05:32 WBC 8.5 RBC 4.28 Hgb 11.0 L Hct 34.8 L MCV 81.3 MCH 25.7 L MCHC 31.6 RDW 14.3 Plt Count 117 L MPV 12.6 H Blood Type A Negative Rho(D) Type Negative / 0 Antibody Screen Negative Screen Negative Vitals: Last Vital Signs Temp 97.6 F 08/14/20 15:39 Pulse 92 08/14/20 15:39 Resp 16 08/14/20 15:39 BP 111/74 08/14/20 15:39 Pulse Ox 97 08/13/20 11:15 Discharge Plan Discharge Patient Disposition: Home Condition: Stable Prescriptions: New hydrocodone-acetaminophen 5-325 mg tablet 1 tab PO Q4H PRN (Reason: pain) Qty: 30 RF: 0 ibuprofen 800 mg tablet 800 mg PO TID PRN (Reason: pain) Qty: 60 RF: 0 ferrous sulfate 325 mg (65 mg iron) tablet 325 mg PO BID Qty: 60 RF: 0 Continued Gummies 400 mcg-35 mg- 25 mg-5 mg tablet,chewable 2 tab PO DAILY RF: 0 Discharge Orders: Discharge Order (Routine); Ordered 08/14/20 Ordered By: Rashaad Villalpando Referrals: Rashaad Villalpando MD [Physician] - 08/27/20 11:00 am (2 week post appointment with on 08/27/20 @11) Discharge Diet: Usual diet Discharge Activity: Increase activity as tolerated Patient Instructions: Vitamins (By mouth), Pre-eclampsia and Eclampsia (DC), Bleeding (DC), OB Abdominal Surgery - [facility], OB Discharge Report, OB Food/Drug Interaction Guide, Opioid Safety, OB Proud Parent Packet, Section (DC) Activity Restrictions/Additional Instructions: 1. Please [place] [facility] on next working day to make your post-operative appointment in 2 weeks. 2. Please stay home until you come back to the clinic on first post-operative check up. 3. Please follow instructions on your medications CAREFULLY. 4. If you have abdominal incision, do not cover it unless dressing is necessary because of drainage. OK to shower, but avoid bath. Leave steri-strips until they fall off. If they are still on one week after surgery, you may remove them. 5. If you had vaginal surgery or vaginal repair, Dr. Villalpando may instruct you to take SITZ bath. 6. Yellow, blood tinged odorous vaginal discharge is usually normal after hysterectomy or vaginal surgeries. 7. No sexual intercourse, tampons, or douches until you are completely released from the post-operative care. 8. Avoid constipation by eating right and maybe using some Metamucil or Milk of Magnesia. 9. All prescription refills are given during the working hours. Please do no wait till it runs out. Call the clinic at [phone] before your medication runs out. The clinic will get in touch with your doctor to prescribe medications if necessary. 10. Please remain within 40 mile radius from our hospital because emergencies do happen now and then during the post-operative period. 11. If you have stairs at home, take one step at a time slowly and minimize the number of trips. It helps to stay in one floor for the next few days. No lifting except what you can lift by one hand until you are released from the post-operative care. 12. Driving is discouraged until you are well healed. It may be 3-4 weeks before you feel strong enough to drive. You should be able to turn and look through the rear window without pain and you should be able to push the brake pedal very hard without pain before you drive. No fast rules, but SAFETY should be your primary concern. DO NOT drive if you are on sedating medications such as narcotics. 13. Call the clinic (during working hours) to make urgent appointment or go to the Emergency room, if any of the following occurs: i. Vaginal bleeding becomes heavy, more than a period. ii. Incision becomes red and sore, or drains pus. iii. Your temperature is over 100.4 or you have chill. iv. IV site becomes red and swollen (a little ``knot?? is usually OK) v. Persistent nausea and vomiting vi. Persistent constipation or diarrhea vii. Rash or allergic reaction to medications. Discharge Attestations ELECTRONIC GAME DEVELOPER Time Spent in Discharge Care*: greater than 30 min Coding Level of Care Code Acute Manager Critical Care Unit for Chg Fwd Diagnoses Term delivered O80
[2020-08-14 17:29] VITALS: BP 122/70; PULSE 87; RESP 18; TEMP 37; O2SAT 98
== END 2020-08-14 18:10 | disposition home or self-care (01) | DRG 788 ==
PROVIDERS: Admitting Provider Obstetrics & Gynecology; PCP Nurse Practitioner Family; Visit Provider Obstetrics & Gynecology
PROC: 10D00Z1 Extraction of Products of Conception, Low, Open Approach (ICD-10-PCS; CPT 59514; principal; 2020-08-13 07:00)
DX: O34.219 Maternal care for unspecified type scar from previous cesarean delivery (principal); N85.8 Other specified noninflammatory disorders of uterus; O99.02 Anemia complicating childbirth; D57.1 Sickle-cell disease without crisis; O99.52 Diseases of the respiratory system complicating childbirth; J45.909 Unspecified asthma, uncomplicated; Z3A.39 39 weeks gestation of pregnancy; Z37.0 Single live birth
CPT/HCPCS: 36415; 51702; 59025; 59409; 85025; 85027; 85460; 86850; 86900; 90384; 96374; 96375; C9290; J0690; J1885; J2274; J2370; J2405; J2765; J3490

== ENCOUNTER → 2020-09-28 08:32 | Outpatient (BNVA) | payer BC, MEDICAID, SELFPAY | PROVIDERS: PCP Nurse Practitioner Family; Visit Provider Obstetrics & Gynecology | DX: Z12.4 Encounter for screening for malignant neoplasm of cervix (principal) | CPT/HCPCS: 88175 ==

== ENCOUNTER 2021-05-09 09:48 | Outpatient (CLI) | payer BC, SELFPAY ==
[2021-05-09 10:21] LABS: Basophils # 0.1 10^3/uL (0.0-0.1); Eosinophils # 0.8 10^3/uL (0.0-0.8); Hematocrit 40.4 % (37.0-47.0); Hemoglobin 12.8 g/dL (11.5-15.3); Lymphocytes # 1.9 10^3/uL (0.8-4.8); Lymphocytes % 25.8 %; Mean Corpuscular HGB Conc 31.7 g/dL (30.0-36.0); Mean Corpuscular Hemoglobin 24.8 pg (28.0-34.0); Mean Corpuscular Volume 78.3 fl (81-99); Mean Platelet Volume 12.8 fL (7.4-10.4); Monocytes # 0.5 10^3/uL (0.2-0.9); Monocytes % 7.5 %; Neutrophils # 3.86 10^3/uL (1.8-7.7); Neutrophils % 53.9 %; Nucleated Red Blood Cells % 0 %; Platelet Count 206 10^3/cmm (130-400); Red Blood Count 5.16 10^6/uL (4.1-5.3); Red Cell Distribution Width 14.7 % (12.1-15.1); White Blood Count 7.2 10^3/uL (4.0-10.0)
[2021-05-09 10:56] LABS: Ferritin 26 ng/mL (15-150); Iron 196 ug/dL (37-145); Percent Saturation 56.9 % (20-50); Total Iron Binding Capacity 344 mcg/dl; Unsaturated Iron Binding 148 ug/dL (112-347)
--- NOTE | 2021-05-12 17:45 | ONC FU_ITS ---
Dr. Hinojosa follow up note Patient: Salome Melendez Unit #: [id number]: 1995 Dicatated By: Sheldon Hinojosa M.D.Date of Visit:May 09, 2021 Onc Med Follow-up/Prog Note History of Present Illness: Ms. Salome Melendez, is a 26-year-old female with longstanding history of anemia, as per patient when she was in 11th grade, she was diagnosed with sickle cell anemia at children's clinic in [facility] and she was started on oral iron ferrous sulfate twice a day, patient was also followed in hematology clinic in [facility]. Patient never received blood transfusion, no history of bone marrow evaluation. But patient has been taking oral iron since grade 11 and her hemoglobin usually stays between 7 to 8 g. 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 Also history of heavy menstrual periods, in the past she has used control pills without much success and she uses about 7-8 pads a day for 5 days or more. She also has a history of abnormal Pap smear in 2017 at that time underwent biopsy, now with a yearly follow-up She has 1 child born on 2018 and history of miscarriage. She denies smoking but drinks occasionally. Came for follow-up, denies any specific complaints, no fever chills, no nausea or vomiting, no diarrhea constipation, no melena or hematochezia, no hemoptysis or hematemesis, as per patient her PMD informed her about iron deficiency, she was sent to clinic for iron infusion. Medications: There is no information available for Current Medications - Patient. Allergies: pork Review of Systems: Review of Systems is not available for this patient. Vital Signs: Performed on May 09, 2021 11:59 Height - 62.00 in Weight - 185 lbs (HIGH) BSA - 1.85 sq.m BMI - 33.84 (HIGH) Temperature - 97.8 F (LOW) Pulse - 102 /min (HIGH) Respiration - 18 /min BP - 133/77 mm(hg) O2 Sat - 98 % Pain - 0 Fatigue - 4 Performance Status: 0 - Fully active, able to carry on all predisease activities without restrictions. (ECOG) Physical Examination: ENMT - No mouth sores, no thrush, no jaundice, Respiratory - Lungs are clear to auscultation, Cardiovascular - Regular rate and rhythm of heart, Abdomen - Soft, bowel sounds present, Extremities - No visible edema. Lab/Imaging: Most recent lab results are not available for this patient. Impression: Microcytic hypochromic anemia, diagnosed in 11th grade, as per patient she was diagnosed with with' 'sickle cell' anemia and was started on oral iron ferrous sulfate twice a day Splenomegaly and horseshoe kidney seen on CT scan of abdomen as per patient last scan was done in 2012, As per patient she has splenomegaly since childhood, for which she went to [facility] in [place], where extensive testing was done, she was followed there for many years, Her follow-up scan shows no change in her mildly enlarged spleen History of heavy menstrual periods, has seen COMPUTER BOOKKEEPER, tried control pills without much help History of abnormal Pap smear in 2017 status post biopsy now being followed on a yearly basis by COMPUTER BOOKKEEPER. History of nosebleed off and on since 2010 Lower extremity/feet numbness. Plan: Discussed with patient regarding her labs white blood count 7.2 hemoglobin 12.8 hematocrit 40.4 MCV 78.3 platelets 206,000, iron studies shows iron saturation 56.9 ferritin 26 iron 196, TIBC 344 Clinically, patient is doing well but with generalized weakness and fatigue, her CBC is showed hemoglobin on the low side of normal but with low MCV and ferritin also on the lower side of normal range, clinically it appears patient has mild iron deficiency, which may be causing generalized weakness and fatigue, will consider Injectafer 750x1 then she will return to clinic in 1 month with CBC and iron studies Signed By: Sheldon Hinojosa M.D. <<Signature on File>>
== END 2021-05-09 09:49 | disposition home or self-care (01) ==
PROVIDERS: PCP Nurse Practitioner Family; Visit Provider Internal Medicine Hematology & Oncology
DX: D50.9 Iron deficiency anemia, unspecified (principal); R16.1 Splenomegaly, not elsewhere classified; Q63.1 Lobulated, fused and horseshoe kidney
CPT/HCPCS: 36415; 82728; 83540; 83550; 85025; 99214

== ENCOUNTER 2021-07-04 08:31 | Outpatient (CLI) | payer BC, SELFPAY ==
[2021-07-04] MEDS: acetaminophen 325 mg Tablet 650 MG PO (09:14)
[2021-07-04] MEDS: sodium chloride 0.9% 250 ML IV (09:14)
[2021-07-04] MEDS: diphenhydrAMINE 50 mg/mL SDV 1mL 25 MG IVP (09:16)
[2021-07-04] MEDS: iron dextran 25 MG in SYRINGE 1 EACH 30 MG IVP (09:30)
[2021-07-04] MEDS: iron dextran 900 MG in sodium chloride 0.9% 1,000 ML 250 MG IV (10:39)
== END 2021-07-04 08:32 | disposition home or self-care (01) ==
LOC: ONCMED 08:35
PROVIDERS: PCP Nurse Practitioner Family; Visit Provider Internal Medicine Hematology & Oncology
DX: D64.9 Anemia, unspecified (principal)
CPT/HCPCS: 96365; 96366; 96375; J1100; J1200; J1750; J7030; J7050

== ENCOUNTER 2021-08-06 11:08 | Outpatient (CLI) | payer BC, SELFPAY ==
[2021-08-06 11:32] LABS: Basophils # 0.1 10^3/uL (0.0-0.1); Basophils % 0.7 %; Eosinophils # 0.6 10^3/uL (0.0-0.8); Eosinophils % 6.7 %; Hematocrit 39.1 % (37.0-47.0); Hemoglobin 12.8 g/dL (11.5-15.3); Lymphocytes % 22.9 %; Mean Corpuscular HGB Conc 32.7 g/dL (30.0-36.0); Mean Corpuscular Volume 79.3 fl (81-99); Mean Platelet Volume 12.2 fL (7.4-10.4); Monocytes # 0.5 10^3/uL (0.2-0.9); Monocytes % 5.7 %; Neutrophils # 5.44 10^3/uL (1.8-7.7); Neutrophils % 63.5 %; Nucleated Red Blood Cells % 0 %; Platelet Count 181 10^3/cmm (130-400); Red Blood Count 4.93 10^6/uL (4.1-5.3); Red Cell Distribution Width 15.8 % (12.1-15.1); White Blood Count 8.6 10^3/uL (4.0-10.0)
[2021-08-06 11:52] LABS: Ferritin 286 ng/mL (15-150); Iron 56 ug/dL (37-145); Percent Saturation 26.9 % (20-50); Total Iron Binding Capacity 208 mcg/dl; Unsaturated Iron Binding 152 ug/dL (112-347)
[2021-08-06 13:44] LABS: Vitamin B12 308 pg/mL (232-1245)
--- NOTE | 2021-08-12 17:44 | ONC FU_ITS ---
Dr. Hinojosa follow up note Patient: Salome Melendez Unit #: [id number]: 1995 Dicatated By: Sheldon Hinojosa M.D.Date of Visit:Aug 06, 2021 Onc Med Follow-up/Prog Note History of Present Illness: Ms. Salome Melendez, is a 26-year-old female with longstanding history of anemia, as per patient when she was in 11th grade, she was diagnosed with sickle cell anemia at children's clinic in [facility] and she was started on oral iron ferrous sulfate twice a day, patient was also followed in hematology clinic in [facility]. Patient never received blood transfusion, no history of bone marrow evaluation. But patient has been taking oral iron since grade 11 and her hemoglobin usually stays between 7 to 8 g. 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 Also history of heavy menstrual periods, in the past she has used control pills without much success and she uses about 7-8 pads a day for 5 days or more. She also has a history of abnormal Pap smear in 2017 at that time underwent biopsy, now with a yearly follow-up She has 1 child born on 2018 and history of miscarriage. She denies smoking but drinks occasionally. Came for follow-up, denies any specific complaint except generalized weakness and fatigue, no fever chills, no nausea or vomiting, no diarrhea or constipation, no melena hematochezia, no hemoptysis hematemesis, no jaundice, patient tolerated iron dextran well as per patient she do not get enough sleep at night, and cannot lay on her back and usually feels sleepy all day long, never been tested for sleep apnea Medications: Albuterol Sulfate Aerosol Powder, Breath Activated Inhalation PRN, Cetirizine HCl 1 Tablet (of 10 mg) Capsule Oral daily, Ibuprofen Tablet Oral PRN, Sprintec 28 1 Tablet (of 0.25-35 mg - mcg) Oral daily Allergies: pork Review of Systems: Review of Systems is not available for this patient. Vital Signs: Performed on Aug 06, 2021 15:35 Height - 62.00 in Weight - 189.6 lbs (HIGH) BSA - 1.87 sq.m BMI - 34.68 (HIGH) Temperature - 98.6 F Pulse - 92 /min Respiration - 16 /min BP - 122/78 mm(hg) O2 Sat - 98 % Pain - 0 Fatigue - 4 Performance Status: 0 - Fully active, able to carry on all predisease activities without restrictions. (ECOG) Physical Examination: ENMT - No mouth sores, no thrush, no jaundice, Respiratory - Poor air entry otherwise clear, Cardiovascular - Regular rate and rhythm of heart, Abdomen - Soft, bowel sounds present, Extremities - No visible edema. Lab/Imaging: Most recent lab results are not available for this patient. Impression: Microcytic hypochromic anemia, diagnosed in 11th grade, as per patient she was diagnosed with with' 'sickle cell' anemia and was started on oral iron ferrous sulfate twice a day Splenomegaly and horseshoe kidney seen on CT scan of abdomen as per patient last scan was done in 2012, As per patient she has splenomegaly since childhood, for which she went to [facility] in [place], where extensive testing was done, she was followed there for many years, Her follow-up scan shows no change in her mildly enlarged spleen History of heavy menstrual periods, has seen CLINICAL NURSE LEADER, tried control pills without much help History of abnormal Pap smear in 2017 status post biopsy now being followed on a yearly basis by CLINICAL NURSE LEADER. History of nosebleed off and on since 2010 Lower extremity/feet numbness. Plan: Discussed with patient regarding her labs white blood count 8.6 hemoglobin 12.8 hematocrit 39.1 platelets 181,000 iron studies shows iron saturation 26.9 ferritin 286 compared to 26 prior to iron dextran on infusion on July 04, 2021 Clinically, patient doing well with no new signs symptom suggestive of gross bleeding, her follow-up lab work-up shows excellent response to parenteral iron, and now adequate iron stores. But patient still complaining of generalized weakness and fatigue which could be due to underlying sleep apnea, will suggest PMD to consider sleep study and if sleep apnea is confirmed, may benefit from CPAP machine. We will also check a B12 level if it is low, may consider B12 supplement otherwise she will return to clinic in 3 months with CBC iron studies and B12 level.^ Addendum, her B12 level was checked today is 308, which is on the lower side of normal range, we will consider parenteral B12 supplement] Signed By: Sheldon Hinojosa M.D. <<Signature on File>>
== END 2021-08-06 11:09 | disposition home or self-care (01) ==
PROVIDERS: PCP Nurse Practitioner Family; Visit Provider Internal Medicine Hematology & Oncology
DX: D50.9 Iron deficiency anemia, unspecified (principal); R16.1 Splenomegaly, not elsewhere classified; D57.00 Hb-SS disease with crisis, unspecified; Q63.1 Lobulated, fused and horseshoe kidney; N92.0 Excessive and frequent menstruation with regular cycle; Z87.42 Personal history of other diseases of the female genital tract; Z87.09 Personal history of other diseases of the respiratory system; R20.2 Paresthesia of skin
CPT/HCPCS: 36415; 82607; 82728; 83540; 83550; 85025; 99214

== ENCOUNTER → 2022-04-04 14:30 | Outpatient (BNVA) | payer BC, MEDICAID, SELFPAY | PROVIDERS: PCP Nurse Practitioner Family; Visit Provider Obstetrics & Gynecology | DX: Z00.00 Encounter for general adult medical examination without abnormal findings (principal) | CPT/HCPCS: 83001; 84146; 84443; 84702; 85025 ==

== ENCOUNTER → 2022-04-14 15:57 | Outpatient (BNVA) | payer BC, MEDICAID, SELFPAY | PROVIDERS: PCP Nurse Practitioner Family; Visit Provider Obstetrics & Gynecology | DX: N91.5 Oligomenorrhea, unspecified (principal) | CPT/HCPCS: 76830 ==

== ENCOUNTER 2022-07-25 16:11 | Outpatient (CLI) | payer BC, MEDICAID, SELFPAY ==
--- NOTE | 2022-07-25 17:20 | XR_ITS ---
WS: [id number] XR KUB [id number] REASON FOR EXAM: HEMATURIA FINDINGS: No urinary tract calculi identified. Bowel gas pattern is unremarkable. No mass identified. XR/XR KUB [id number] IMPRESSION: No significant abnormality.
== END 2022-07-25 16:12 | disposition home or self-care (01) ==
PROVIDERS: PCP Nurse Practitioner Family; Visit Provider Nurse Practitioner Family
DX: R31.9 Hematuria, unspecified (principal)
CPT/HCPCS: 74018

== ENCOUNTER 2022-10-21 17:20 | Inpatient (IN) | payer BC, MEDICAID, SELFPAY ==
[2022-10-21] VITALS (7 sets, daily range): BP systolic 107–128; BP diastolic 67–80; PULSE 85–101; RESP 14–19; TEMP 36.8–36.9; O2SAT 94–98; BMI 36.2
--- NOTE | 2022-10-21 17:45 | USR_ITS ---
PROCEDURE INFORMATION: Exam: US Pelvis, Transvaginal Exam date and time: 10/21/2022 6:10 PM Age: 27 years old Clinical indication: Pelvic pain; Patient HX: Dx'd with hyprosalpinx and getting antibiotics now; Additional info: Abd pain LABS AND CLINICAL REPORTS: Last menstrual period start date: 10/21/2022 TECHNIQUE: Imaging protocol: Real-time transvaginal pelvic ultrasound with image documentation. Transvaginal imaging was used for better evaluation of the endometrium, adnexa, and/or cervix. COMPARISON: US transvaginal [id number] 04/14/2022 4:06 PM FINDINGS: Uterus: The uterus measures 9.1 x 3.8 x 5.1 cm. No myometrial abnormality. The endometrium is unremarkable. Endometrium measures 5.5 mm. Cervix: Heterogeneity of the cervix with cystic and solid components is stable compared with the prior ultrasound. Etiology is uncertain, continued clinical follow-up to rule out a possible cervical mass is recommended. May also consider direct visualization. Right ovary/adnexa: The right ovary measures 2.6 x 3.0 x 1.3 cm with a volume of 5.3 ml. There is flow on Doppler imaging. Resistive index is 0.62. Multiple subcentimeter follicles in the right ovary. Mildly dilated right fallopian tube. No abnormal flow on Doppler imaging. Left ovary/adnexa: The left ovary measures 2.3 x 1.5 x 2.4 cm with a volume of 4.4 ml. There is flow on Doppler imaging. Resistive index is mildly elevated measuring 0.81 however, which can be seen with ovarian torsion. Multiple subcentimeter follicles in the left ovary. Intraperitoneal space: No free fluid in the pelvis. US/US transvaginal [id number] IMPRESSION: 1. There is flow in the left ovary on Doppler imaging. Resistive index in the left ovary is mildly elevated measuring 0.81 however, which can be seen with ovarian torsion. Recommend clinical correlation. 2. Heterogeneity of the cervix with cystic and solid components is stable compared with the prior ultrasound. Etiology is uncertain, continued clinical follow-up to rule out a possible cervical mass is recommended. May also consider direct visualization. 3. Mildly dilated right fallopian tube. No abnormal flow on Doppler imaging.
--- NOTE | 2022-10-21 17:53 | ED_ITS ---
HPI - Abdominal Pain General: Chief Complaint: Abdominal Pain Stated Complaint: Kwasi sent for TOA Time Seen by Provider: 10/21/22 17:30 Source: patient Mode of arrival: ambulatory Limitations: no limitations History of Present Illness: 19-year-old female states she been having some lower abdominal pain over the last few days. She states she had an ultrasound done at [facility] concerning for a possible tubo-ovarian abscess she did see no her OB Dr. Villalpando had sent her appear to be admitted on IV antibiotics she is currently on her menstruation denies any vaginal discharge. She denies any fevers. Associated Symptoms: Denies chills, dysuria, fever(s), nausea and vomiting Review of Systems Const: Denies: fever(s) or chills ENMT: Denies: throat pain or dental pain Card: Denies: chest pain Resp: Denies: dyspnea GI: Reports: abdominal pain; Denies: nausea or vomiting : Denies: dysuria Musc: Denies: neck pain or back pain Skin/Breast: Denies: rash Neuro: Denies: headache(s) [facility] ED PFSH: Medical History Asthma COOPER III (cervical intraepithelial neoplasia III) 05/2015: COOPER 3 - Treated by cervical cone (possibly LEEP) per patient. 11/20/2016: Patient reports having had a follow-up pap smear at approx 6 months after treatment. She is unsure of the results. Plan pap smear after delivery. Contraception management She was counseled regarding again missed AB and all treatment modalities. Was counseled hCG continue to decrease and she declined any bleeding. Patient elected expectant/conservative management. Quantitative hCG now negative. Patient refers she wants to start using OCPs. She was counseled regarding all methods of contraception. She wants to proceed start using OCPs she was counseled regarding starting OCPs. Follow-up in 3 months Patient denies medical problems Denies history of: high blood pressure, diabetes, heart, lung, liver, kidney, thyroid, bleeding problems, or clotting problems Sickle cell anemia (~2009) Surgical History H/O section 08/13/2020- repeat delivery, performed by Dr. Villalpando at [facility] History of cholecystectomy (~2015) History of dilation and curettage (~05/2015) Performed at time of cervical cone per patient. [facility] Previous section (~04/2017) Family History Grandmother Hyperlipidemia Maternal Hypertension Maternal Diabetes Maternal Breast cancer Maternal Grandfather Diabetes paternal Colon cancer Maternal Family/Other Breast cancer Paternal aunt, paternal cousin Patient denies medical problems Denies family history of: heart disease, stroke, thyroid problems, ovarian cancer, or uterine cancer Social History Substance/Drug Use: never Additional social history: - Tobacco use: Denies Alcohol use: Denies Drug use: Denies Physical Exam Const: COMMON NORMALS: no acute distress, patient oriented x3 and healthy appearing HENMT: COMMON NORMALS: normocephalic and atraumatic HEAD & SCALP: normocephalic and atraumatic Eye: COMMON NORMALS: Equal, round and reactive pupils present and EOMs intact bilaterally PUPIL: Yes Equal, round and reactive pupils present Neck/C-Spine: COMMON NORMALS: full ROM and supple Chest: COMMONS NORMALS: normal inspection of the chest and normal palpation of entire chest wall Resp: COMMON NORMALS: normal respiratory effort, No retractions, No use of accessory muscles and clear to auscultation bilaterally AUSCULTATION: clear to auscultation bilaterally Cardio: COMMON NORMALS: regular rate, regular rhythm and No murmurs present (Cardio) RATE: regular rate RHYTHM: regular rhythm GI: COMMON NORMALS: Normal to inspection, nondistended, normoactive bowel sounds present, Soft to palpation, non-tender and no masses PALPATION: Yes Soft to palpation Extremity: COMMON NORMALS: normal to inspection and full ROM Neuro: COMMON NORMALS: patient oriented x3, moves all extremities and no focal motor deficits Psych: COMMON NORMALS: mental status grossly normal, Normal thought process present and cooperative THOUGHT PROCESS: Normal thought process present Skin: COMMON NORMALS: no rashes or lesions noted and no wounds GENERAL SKIN EXAM: no rashes or lesions noted Course Vital Signs: Vital signs: Vital Signs Temperature 98.2 F 10/21/22 17:24 Pulse Rate 94 10/21/22 19:21 Respiratory Rate 16 10/21/22 19:21 Blood Pressure 128/76 10/21/22 19:21 Pulse Oximetry 98 10/21/22 19:21 Oxygen Delivery Me thod Room Air 10/21/22 19:21 MDM - Abdominal Pain Medical Decision Making Patient sent over here by Dr. Villalpando for admission 5 antibiotics for possible TOA. Patient's white count here is normal pains minimal no signs of appendicitis here did speak to Dr. Muñoz will admit start IV antibiotics. Lab Data 10/21/22 18:39 10/21/22 18:39 Labs/Radiology: Laboratory Results WBC 7.7 10^3/uL (4.0-10.0) 10/21/22 18:39 RBC 5.36 10^6/uL (4.1-5.3) H 10/21/22 18:39 Hgb 14.5 g/dL (11.5-15.3) 10/21/22 18:39 Hct 43.9 % (37.0-47.0) 10/21/22 18:39 MCV 81.9 fl (81-99) 10/21/22 18:39 MCH 27.1 pg (28.0-34.0) L 10/21/22 18:39 MCHC 33.0 g/dL (30.0-36.0) 10/21/22 18:39 RDW 13.1 % (12.1-15.1) 10/21/22 18:39 Plt Count 196 10^3/cmm (130-400) 10/21/22 18:39 MPV 12.2 fL (7.4-10.4) H 10/21/22 18:39 Neut % (Auto) 61.9 % 10/21/22 18:39 Lymph % (Auto) 27.0 % 10/21/22 18:39 [place] % (Auto) 5.2 % 10/21/22 18:39 Eos % (Auto) 4.8 % 10/21/22 18:39 Baso % (Auto) 0.6 % 10/21/22 18:39 Neut # (Auto) 4.76 10^3/uL (1.8-7.7) 10/21/22 18:39 Lymph # (Auto) 2.1 10^3/uL (0.8-4.8) 10/21/22 18:39 [place] # (Auto) 0.4 10^3/uL (0.2-0.9) 10/21/22 18:39 Eos # (Auto) 0.4 10^3/uL (0.0-0.8) 10/21/22 18:39 Baso # (Auto) 0.1 10^3/uL (0.0-0.1) 10/21/22 18:39 Nucleated RBC % (auto) 0 % 10/21/22 18:39 Nucleated RBCs # 0.0 /100WBC 10/21/22 18:39 Sodium 141 mmol/L (136-145) 10/21/22 18:39 Potassium 3.9 mmol/L (3.5-5.1) 10/21/22 18:39 Chloride 105 mmol/L (98-107) 10/21/22 18:39 Carbon Dioxide 22 mmol/L (22-29) 10/21/22 18:39 Anion Gap 17.9 (5-19) 10/21/22 18:39 BUN 11 mg/dL (6-20) 10/21/22 18:39 Creatinine 0.7 mg/dL (0.5-0.9) 10/21/22 18:39 GFR Calculation 99.6 mL/min (90-130) 10/21/22 18:39 Glucose 98 mg/dL (65-115) 10/21/22 18:39 Calculated Osmolality 291 mOsm/kg (285-295) 10/21/22 18:39 Calcium 9.2 mg/dL (8.5-10.5) 10/21/22 18:39 Total Bilirubin 0.2 mg/dL (0.15-1.2) 10/21/22 18:39 AST 22 U/L (0-32) 10/21/22 18:39 ALT 25 U/L (0-33) 10/21/22 18:39 Alkaline Phosphatase 84 U/L (35-105) 10/21/22 18:39 Total Protein 7.3 g/dL (6.6-8.7) 10/21/22 18:39 Albumin 4.3 g/dL (3.5-5.2) 10/21/22 18:39 Globulin 3.0 g/dL (1.3-4.6) 10/21/22 18:39 Lipase 26 U/L (13-60) 10/21/22 18:39 Discharge Plan Discharge Patient Disposition: Admitted As Inpatient Clinical Impression: Tubo-ovarian abscess Condition: Stable Prescriptions: No Action cetirizine 10 mg tablet 10 mg PO DAILY PRN norgestimate-ethinyl estradiol [Sprintec (28)] 0.25-35 mg-mcg tablet 1 tab PO DAILY Qty: 84 3RF ibuprofen 800 mg tablet 800 mg PO Q8H tramadol 50 mg tablet 50 mg PO DAILY cephalexin 500 mg capsule 500 mg PO BID Referrals: Kristie Stewatr APN [Primary Care Provider] - Coding Level of Care Code ED Service Establishment Attendant for Kathleen Roy
[2022-10-21] MEDS: ondansetron 2 mg/ML SDV 2 mL 4 MG IVP ×2 (18:29→22:50)
[2022-10-21] MEDS: morphine 4 mg/mL SDV 1 mL IVP (18:34)
[2022-10-21] MEDS: metroNIDAZOLE IV 500 MG/100 ML PREMIX 100 MG IV (18:45)
[2022-10-21] MEDS: cefTRIAXone 1,000 MG in sodium chloride 0.9% (plus) 50 ML 100 MG IV (18:50)
[2022-10-21 18:52] LABS: Basophils # 0.1 10^3/uL (0.0-0.1); Basophils % 0.6 %; Eosinophils # 0.4 10^3/uL (0.0-0.8); Eosinophils % 4.8 %; Hematocrit 43.9 % (37.0-47.0); Hemoglobin 14.5 g/dL (11.5-15.3); Lymphocytes # 2.1 10^3/uL (0.8-4.8); Mean Corpuscular Hemoglobin 27.1 pg (28.0-34.0); Mean Corpuscular Volume 81.9 fl (81-99); Mean Platelet Volume 12.2 fL (7.4-10.4); Monocytes # 0.4 10^3/uL (0.2-0.9); Monocytes % 5.2 %; Neutrophils # 4.76 10^3/uL (1.8-7.7); Neutrophils % 61.9 %; Nucleated Red Blood Cells % 0 %; Platelet Count 196 10^3/cmm (130-400); Red Blood Count 5.36 10^6/uL (4.1-5.3); Red Cell Distribution Width 13.1 % (12.1-15.1); White Blood Count 7.7 10^3/uL (4.0-10.0)
[2022-10-21] MEDS: doxycycline 100 MG in sodium chloride 0.9% (plus) 100 ML IV (18:53)
[2022-10-21 19:07] LABS: Alanine Aminotransferase 25 U/L (0-33); Albumin Level 4.3 g/dL (3.5-5.2); Alkaline Phosphatase 84 U/L (35-105); Anion Gap 17.9 (5-19); Aspartate Amino Transferase 22 U/L (0-32); Blood Urea Nitrogen 11 mg/dL (6-20); Calcium 9.2 mg/dL (8.5-10.5); Carbon Dioxide 22 mmol/L (22-29); Chloride 105 mmol/L (98-107); Glomerular Filtration Rate 99.6 mL/min (90-130); Glucose 98 mg/dL (65-115); Lipase 26 U/L (13-60); Osmolality Calculated 291 mOsm/kg (285-295); Potassium 3.9 mmol/L (3.5-5.1); Sodium 141 mmol/L (136-145); Total Bilirubin 0.2 mg/dL (0.15-1.2); Total Protein 7.3 g/dL (6.6-8.7)
[2022-10-21 19:40] LABS: Protein Urine Trace (Negative); Specific Gravity, Urine 1.025 (1.005-1.030); Urine Appearance Cloudy (CLEAR); Urine Color Yellow (Yellow); pH Urine 5 (5-7)
[2022-10-21 19:41] LABS: Add Urine Culture? Yes; Add Urine Microscopic? YES; Bacteria Urine TRACE /hpf; Bilirubin Urine Neg (Negative); Blood Urine 3+ (Negative); Glucose Urine UA Norm (Normal); Ketones Urine Negative (Negative); Leukocyte Esterase Urine Trace (Negative); Mucus Urine 1+ /hpf; Nitrate Urine Negative (Negative); RBC Urine >100 /hpf (0-2); Squamous Epithelial Cell Urine 0-4 /hpf (0-5); Urobilinogen Urine Norm (Negative); WBC Urine 15-25 /hpf (0-5)
[2022-10-21 19:50] LABS: HCG, Serum Qual Negative (Negative)
[2022-10-21] MEDS: HYDROcodone-acetaminophen 5-325 mg Tablet 1 TAB PO (22:50)
[2022-10-22 04:46] VITALS: BP 102/66; PULSE 86; RESP 21; TEMP 36.7; O2SAT 96
[2022-10-22] MEDS: doxycycline 100 MG in sodium chloride 0.9% (plus) 100 ML IV ×2 (05:21→18:12)
--- OUTSIDE RECORDS SUMMARY | 2022-10-22 06:02 | XMS_ITS | Patient Health Record ---
Author Name Unknown Organization [facility] Address [address] [place] [address] Care Team Providers Care Workers' Compensation Claims Examiner Name Role Phone Kristie Stewart Unavailable [phone] Anne Knight Unavailable [phone] PROBLEMS Type Condition ICD9-CM Code WBO66-VT Code Onset Dates Condition Status W/U Status Risk SNOMED Code Notes Problem History of anemia Z86.2 confirmed 075318999 Problem Sinusitis J32.9 confirmed [id number] Problem Vitamin D deficiency E55.9 confirmed [id number] Problem Moderate persistent asthma without complication J45.40 confirmed [id number] Problem Moderate persistent asthma with exacerbation J45.41 confirmed [id number] Problem Seasonal allergies J30.2 confirmed [id number] ALLERGIES No Known Allergies ENCOUNTERS from 1994 to 2022-10-22 Encounter Location Date Provider Diagnosis [facility] [address] [place] [address] Sep, Kristie Stewart [facility] [address] [place] [address] Sep, Kristie Stewart Right lower quadrant abdominal pain R10.31 xBS [facility] [address] [place] [address] Sep, Kristie Stewart Left flank discomfort R10.9 [facility] Office [address] [place] [address] Sep, Kristie Stewart Right lower quadrant abdominal pain R10.31 [facility] Office [address] [place] [address] 30 Jun, 2022 Kristie Stewart UTI (urinary tract infection) N39.0 and Hematuria R31.[address] [place] [address] 24 Jun, 2022 Anne Knight [address] [address] 09 May, 2022 Kristie Stewart Sinusitis J32.9 and control Z78.[address] [place] [address] Apr, Kristie Stewart [address] [address] Jan, Kristie Stewart [facility] Office [address] [place] [address] 11 Jan, 2022 Kristierylee Stewart Dermatitis of face L30.9 ; Acute bilateral low back pain without sciatica M54.50 and History of anemia Z86.[address] [address] Nov, Kristie Stewart [address] [address] Sep, Kristie Stewart Acute recurrent pansinusitis J01.[address] [address] Sep, Kristie Stewart Acute recurrent pansinusitis J01.[address] [address] 11 May, 2021 Kristie Stewart Acute recurrent pansinusitis J01.41 ; Moderate persistent asthma with exacerbation J45.41 ; Moderate persistent asthma without complication J45.40 and Seasonal allergies J30.[address] [address] 10 Apr, 2021 Kristie Stewart Vitamin B12 deficiency E53.8 and Iron deficiency E61.[address] [address] Apr, Kristie Stewart Iron deficiency E61.1 ; Vitamin D deficiency E55.9 ; Vitamin B12 deficiency E53.8 ; Fatigue, unspecified type R53.83 ; Intermittent palpitations R00.2 and Infection of toenail L03.039 [facility] [address] [place] [address] Mar, Kristie Terry Acute recurrent pansinusitis J01.41 SOCIAL HISTORY Tobacco Use: Social History Observation Description Date Details (start date - stop date) Never Smoker Sex Assigned At : Social History Observation Description Sex Assigned At Unknown Alcohol Screen (Audit-C) Question Answer Notes Did you have a drink containing alcohol in the p ast year? No Points 0 Interpretation Negative Tobacco Use/Smoking Question Answer Notes Are you a never smoker PHQ-9 Question Answer Notes Little interest or pleasure in doing things Not at all Feeling down, depressed, or hopeless Not at all Trouble falling or staying asleep, or sleeping t oo much Not at all Feeling tired or having little energy Not at all Poor appetite or overeating Not at all Feeling bad about yourself, or that you are a failure, or have let yourself or your family down Not at all Trouble concentrating on thi ngs, such as reading the newspaper or watching television Not at all Moving or speaking so slowly that other people could have noticed. Or the opposite ? being so fidgety or restless that you have been moving around a lot more than usual Not at all Thoughts that you would be b ashu off , or of hurting yourself in some way Not at all Total Score 0 REASON FOR REFERRAL from 1994 to 2022-10-22 Reason iron deficiency anem ia Diagnosis 1 Iron deficiency (E61 .1) Referral Organization [facility] Referring Provider First Name Kristie Referring Provider Last Name Terry Referring Provider Specialty Nurse Pract itioner Referred Provider Sheldon Hinojosa Referred Provider Specialty Hematology/O ncology Referral Priority Routine General Notes Melisa Greenberg 05/06 04:46:49 PM >sent to dr Hinojosa at [facility] per patient reques t Melisa Greenberg 05/07/2021 11:18:52 AM >they have recieved referral and will work on scheduling VITAL SIGNS from 1994 to 2022-10-22 Height 63 in Sep, Weight 199 lbs Sep, Weight-kg 90.26 kg Sep, BMI 35.25 kg/m2 Sep, Temperature 97.4 degrees Fahrenheit Sep, Heart Rate 84 /min Sep, Respiratory Rate 20 /min Sep, Oximetry 100 % Sep, Height-cm 160.02 cm Sep, Blood pressure systolic 110 mm Hg Sep, Blood pressure diastolic 72 mm Hg Sep, MEDICATIONS Medication SIG (Take, Route, Frequency, Duration) Notes Start Date End Date Status Cipro 500 MG 1 tablet Orally ever y 12 hrs for 7 days Sep, Sep, Active Tamsulosin HCl 0.4 MG 1 capsule Orally O nce a day for 14 days Sep, Oct, Active traMADol HCl 50 MG 1 tablet as needed Orally every 6 hrs Sep, Unknown Sprintec 28 0.25-35 MG-MCG 1 tablet Orally Once a day Unknown RESULTS from 1994 to 2022-10-22 Component Value Reference Range Notes CBC w\ Auto Diff [id number] Reviewed date:10/20/2022 07:40:22 Interpretation: Performing Lab:,Diagnosis Description: Right lower quadrant pain Notes/Report: Absolute Neutrophil Count 3560 CELLS/MCL Baso Abs .05 .00-.10 Baso Auto% 0.7 % 0.0-1.0 % Eos Abs .36 .00-.40 Eos Auto% 5.3 % .0-6.0 % Hct 39.1 % 36.0-46.0 % Hgb 13.1 G/DL 12.0-16.0 G/DL Imm Gran Abs .03 .00-.10 Imm Gran% .4 % .0-.4 % Lymph Abs 2.25 .10-4.10 Lymph Auto% 33.0 % 20.0-51.0 % MCH 27.2 PG 27.0-31.0 PG MCHC 33.5 G/DL 31.0-37.0 G/DL MCV 81.3 FL 80.0-100.0 FL [place] Abs .57 .20-1.00 [place] Auto% 8.4 % 1.7-9.3 % MPV 12.4 FL 9.2-12.0 FL Neutro Abs 3.56 .80-7.70 Neutro Auto% 52.2 % 42.0-75.0 % NRBC# .00 X10'3 .00-.20 X10'3 NRBC% .00 /100 intact WBC's .00-.20 /100 intact WBC's Platelet 215 X10'3 150-400 X10'3 RBC 4.81 X10'6 4.00-5.20 X10'6 RDW-CV 13.2 % 12.2-15.6 % RDW-SD 39.2 FL 35.0-49.0 FL WBC 6.8 X10'3 4.5-11.0 X10'3 Urinalysis--[id number] Reviewed date:10/16/2022 16:14:42 Interpretation: Performing Lab: Notes/Report: Normal UA Specific gravity UA 1.020 Urine Nitrite negative Color UA yellow Urine Blood negative Clarity UA clear Urine pH 6.0 Urine Glucose negative Urine Leukocyte negative Urine Protein negative Urine Bilirubin negative Urine Ketone negative Urobilinogen CT Abdomen, Pelvis w/ Contra st-[id number] Reviewed date:10/20/2022 11:41:15 Interpretation: Performing Lab: Notes/Report: KUB Reviewed date:07/28/2022 15:30:14 Interpretation: Performing Lab: Notes/Report: CBC w\ Auto Diff [id number] Reviewed date:02/05/2022 10:32:59 Interpretation: Performing Lab:,Diagnosis Description: Personal history of diseases of the blood and blood-forming organs and certain disorders involving the immune mechanism Notes/Report: Baso Abs .06 .00-.10 Baso Auto% 0.7 % 0.0-1.0 % Eos Abs .89 .00-.40 Eos Auto% 9.8 % .0-6.0 % Hct 40.7 % 36.0-46.0 % Hgb 13.2 G/DL 12.0-16.0 G/DL Imm Gran Abs .05 .00-.10 Imm Gran% .5 % .0-.4 % Lymph Abs 2.23 .10-4.10 Lymph Auto% 24.5 % 20.0-51.0 % MCH 26.7 PG 27.0-31.0 PG MCHC 32.4 G/DL 31.0-37.0 G/DL MCV 82.4 FL 80.0-100.0 FL [place] Abs .56 .20-1.00 [place] Auto% 6.2 % 1.7-9.3 % MPV 12.9 FL 9.2-12.0 FL Neutro Abs 5.31 .80-7.70 Neutro Auto% 58.3 % 42.0-75.0 % NRBC# .00 X10'3 .00-.20 X10'3 NRBC% .00 /100 intact WBC's .00-.20 /100 intact WBC's Platelet 208 X10'3 150-400 X10'3 RBC 4.94 X10'6 4.00-5.20 X10'6 RDW-CV 13.0 % 12.2-15.6 % RDW-SD 39.0 FL 35.0-49.0 FL WBC 9.1 X10'3 4.5-11.0 X10'3 Comprehensive Metabolic Pane l [id number] Reviewed date:02/05/2022 10:32:40 Interpretation: Performing Lab:,Diagnosis Description: Low back pain, unspecified Notes/Report: Alb/Glob 1.6 0.8-2.2 Albumin 4.2 G/DL 3.2-4.8 G/DL Alk Phos 71 46-116 ALT/SGPT 9 UNIT/L 12-78 UNIT/L Anion Gap 16 5-15 AST/SGOT 17 UNIT/L 15-37 UNIT/L Bili Total .2 MG/DL .3-1.2 MG/DL BUN 8 MG/DL 7-21 MG/DL BUN/Creat Ratio 12.3 % 12.0-20.0 % Calcium 9.3 MG/DL 8.7-10.4 MG/DL Chloride 103 MMOL/L 98-107 MMOL/L CO2 22.9 MMOL/L 20.0-31.0 MMOL/L Creat .65 MG/DL .51-1.17 MG/DL GFR 122.9 ML/MIN/1.73M2 Globulin 2.7 G/DL 2.3-3.5 G/DL Glucose Serum 123 MG/DL 71-110 MG/DL Osmo Serum,Calculated 286 MOSM/KG 280-300 MOSM/KG Potassium 3.7 MMOL/L 3.5-5.1 MMOL/L Sodium 138 MMOL/L 136-145 MMOL/L Total Protein 6.9 G/DL 5.8-8.0 G/DL Urinalysis--[id number] Reviewed date:02/04/2022 15:33:34 Interpretation: Performing Lab: Notes/Report: Normal UA Specific gravity UA 1.015 Urine Nitrite negative Color UA yellow Urine Blood negative Clarity UA clear Urine pH 7.0 Urine Glucose negative Urine Leukocyte negative Urine Protein negative Urine Bilirubin negative Urine Ketone negative Urobilinogen CBC w\ Auto Diff [id number] Reviewed date:04/30/2021 11:24:07 Interpretation: Performing Lab:,Diagnosis Description: Iron deficiency Notes/Report: Baso Abs .04 .00-.10 Baso Auto% 0.8 % 0.0-1.0 % Eos Abs .38 .00-.40 Eos Auto% 7.2 % .0-6.0 % Hct 38.9 % 37.0-47.0 % Hgb 12.6 G/DL 12.0-16.0 G/DL Imm Gran Abs .02 .00-.10 Imm Gran% .4 % .0-.4 % Instr WBC 5.3 Lymph Abs 1.41 .10-4.10 Lymph Auto% 26.7 % 20.0-51.0 % MCH 24.9 PG 27.0-31.0 PG MCHC 32.4 G/DL 33.0-37.0 G/DL MCV 76.7 FL 81.0-99.0 FL [place] Abs .41 .20-1.00 [place] Auto% 7.8 % 1.7-9.3 % MPV 12.6 FL 7.4-10.4 FL Neutro Abs 3.02 .80-7.70 Neutro Auto% 57.1 % 42.0-75.0 % NRBC# .00 X10'3 .00-.20 X10'3 NRBC% .00 /100 intact WBC's .00-.20 /100 intact WBC's Platelet 221 X10'3 150-400 X10'3 RBC 5.07 X10'6 4.20-5.40 X10'6 RDW-CV 15.2 % 11.5-14.5 % RDW-SD 41.8 FL 35.0-49.0 FL WBC 5.3 X10'3 4.8-10.8 X10'3 Iron Level [id number] Reviewed date:05/06/2021 16:34:49 Interpretation: Performing Lab:,Diagnosis Description: Iron deficiency Notes/Report: Iron 68 MCG/DL 50-170 MCG/DL Thyroid Stimulating Hormone (TSH) 73094 Reviewed date:04/30/2021 11:20:27 Interpretation: Performing Lab:,Diagnosis Description: Palpitations Notes/Report: TSH 1.230 MlU/ML .358-3.740 MlU/ML Vitamin B12 (B) 38295 Reviewed date:05/06/2021 16:33:14 Interpretation: Performing Lab:,Diagnosis Description: Deficiency of other specified B group vitamins Notes/Report: [id number] 366 PG/ML 254-1320 PG/ML T4 [id number] Reviewed date:04/30/2021 11:20:33 Interpretation: Performing Lab:,Diagnosis Description: Palpitations Notes/Report: Free T4 0.96 NG/DL 0.76-1.46 NG/DL T3 Free [id number] Reviewed date:04/30/2021 11:20:40 Interpretation: Performing Lab:,Diagnosis Description: Palpitations Notes/Report: Free T3 3.2 PG/ML 2.3-4.2 PG/ML Vitamin D Total (B) 09439 Reviewed date:05/06/2021 16:25:18 Interpretation: Performing Lab:,Diagnosis Description: Vitamin D deficiency, unspecified Notes/Report: Vitamin D Total 21.0 NG/ML 30.0-100.0 NG/ML REASON FOR VISIT No Information MEDICAL (GENERAL) HISTORY Type Description Date Surgical History cholecystectomy Surgical History section MENTAL STATUS No Information ASSESSMENTS Encounter Date Diagnosis Assessment Notes Treatment Notes Treatment Clinical Notes Sep, Right lower quadrant abdominal pain (ICD-10 - R10.31) Sep, Left flank discomfort (ICD-10 - R10.9) Sep, Right lower quadrant abdominal pain (ICD-10 - R10.31) Pt scheduled for CT of abd tomorrow 10-[address] [facility] at 1100. Sep, Other Venipuncture performed. Right arm. One attempt. Pt tolerated well, bleeding controlled with light dressing. Jun, UTI (urinary tract infection) (ICD-10 - N39.0) Increase fluids, take medication as directed. RTC if no improvement with treatment. Jun, Hematuria (ICD-10 - R31.9) Pt will go to [facility] for KUB in am. Jun, Uses oral contraceptives as primary control method (ICD-10 - Z78.9) May, Sinusitis (ICD-10 - J32.9) Increase fluids, take medication as directed. RTC if no improvement with treatment. May, control (ICD-10 - Z78.9) Jan, Dermatitis of face (ICD-10 - L30.9) Jan, Acute bilateral low back pain without sciatica (ICD-10 - M54.50) Jan, History of anemia (ICD-10 - Z86.2) Jan, Other Venipuncture performed. Left arm. One attempt. Pt tolerated well, bleeding controlled with light dressing. Sep, Acute recurrent pansinusitis (ICD-10 - J01.41) Sep, Acute recurrent pansinusitis (ICD-10 - J01.41) Increase fluids, take medication as directed. RTC if no improvement with treatment. Sep, Other 15 minutes spent. Jun, Moderate persistent asthma, unspecified whether complicated (ICD-10 - J45.40) May, Acute recurrent pansinusitis (ICD-10 - J01.41) Increase fluids, take medication as directed. RTC or call with any concerns. May, Moderate persistent asthma with exacerbation (ICD-10 - J45.41) May, Moderate persistent asthma without complication (ICD-10 - J45.40) May, Seasonal allergies (ICD-10 - J30.2) May, Other 20 minutes spen t with pt. Apr, Iron deficiency (ICD-10 - E61.1) Apr, Vitamin B12 deficiency (ICD-10 - E53.8) Apr, Iron deficiency (ICD-10 - E61.1) Will draw labs today and treat accordingly. Apr, Vitamin D deficiency (ICD-10 - E55.9) Apr, Vitamin B12 deficiency (ICD-10 - E53.8) Apr, Fatigue, unspecified type (ICD-10 - R53.83) Apr, Intermittent palpitations (ICD-10 - R00.2) Apr, Infection of toenail (ICD-10 - L03.039) Apr, Other 20 minutes spen t with pt. Mar, Acute recurrent pansinusitis (ICD-10 - J01.41) Increase fluids, take medication as directed. RTC or call with any concerns. Mar, Other 20 minutes spen t with pt. PLAN OF TREATMENT Medication Medication Name Sig Start Date Stop Date Tamsulosin HCl 0.4 MG 1 capsule Orally O nce a day for 14 days Sep, Oct, Cipro 500 MG 1 tablet Orally ever y 12 hrs for 7 days Sep, Sep, Treatment Notes Assessment Notes Clinical Notes Iron deficiency Will draw labs today and treat accordingly. Acute recurrent pansinusitis Increase fl uids, take medication as directed. RTC or call with any concerns. Acute recurrent pansinusitis Increase fl uids, take medication as directed. RTC if no improvement with treatment. Acute recurrent pansinusitis Increase fl uids, take medication as directed. RTC or call with any concerns. Right lower quadrant abdominal pain Pt s cheduled for CT of abd tomorrow 10-[address] [facility] at 1100. Sinusitis Increase fluids, emmanuelle e medication as directed. RTC if no improvement with treatment. UTI (urinary tract infection) Increase f luids, take medication as directed. RTC if no improvement with treatment. Hematuria Pt will go to [facility] rafael MARTINES in am. Pending Tests Test Name Order Date US Pelvis Transvaginal-[id number] 2022-10-20 Referrals Referral Date Details iron deficiency anem Sheldon thibodeaux Insurance Providers Payer Name Payer Address Payer Phone Insured Name Patient Relationship to Insured Coverage Start Date Coverage End Date Subscriber Number Group Number [place] [address] [facility] [phone] Natanael Melendez Self - patient is the insured [id number] MEDICATIONS ADMINISTERED Medication Instructions Date of Administration Dosag e Ketorolac Tromethamine Sep, 60 mg Dexamethasone Sep, 8 mg Dexamethasone May, 8 mg Dexamethasone Mar, 8 mg
--- OUTSIDE RECORDS SUMMARY | 2022-10-22 06:02 | XMS_ITS ---
Author Name Maykel Tate Address [address] [facility] [address] [place] [address] Organization [facility] Address [address] [facility] [address] [place] [address] Care Team Providers Care Stna Name Role Phone Maykel Tate Primary Care Physician Maykel Tate Preferred Provider Allergies and Adverse Reactions Name Reaction Notes NO KNOWN DRUG ALLERGIES Pork Medications Active Name Start Date Estimated Completion Date SIG Comments oral ferrous sulfate oral Problem List Description Status Onset Abnormal PAP Smear Active COOPER III Active Adenocarcinoma Active Vital Signs Date Time BP-Sys(mm[Hg] BP-Qing(mm[Hg]) HR(bpm) RR(rpm) Temp WT HT HC BMI BSA BMI Percentile O2 Sat(%) 04/22 10:10 :00 AM 126 mm[Hg] 80 mm[Hg] 180 lbs 62 in 32.9 221 kg/m 2 1.88 99 m2 Social History Name Description Comments Single Dairy [place] Alcohol Light Wine SociallyUse status used: Light Denies History of Abuse Tobacco Never smoker History of Procedures Date Ordered Description Order Status 04/22/2016 12:00 AM CYTOPATH C/V AUTO FLUID REDO Reviewed Results Summary Date and Description Results 04/22/2016 4:31 PM HPV mRNA E6/E7 Not D etectedLMP: 03/29/2016PREV. PAP: 04/2015PREV. BX: 05/2015 History of Past Illness Name Date of Onset Comments Anemia Asthma HPV COOPER III Abnormal PAP Smear Adenocarcinoma Dysmenorrhea COOPER III with severe dysplasia Apr 22 2016 10:12A M HPV (human papilloma virus) anogenital infection Apr 22 2016 10:12AM Payers Insurance Name Company Name Plan Name Plan Number Policy Number Policy Group Number Start Date [place] Plan [id number] N/A History of Encounters Visit Date Visit Type Provider 04/22/2016 Gynecological Maykel Fischer
[2022-10-22] MEDS: metroNIDAZOLE IV 500 MG/100 ML PREMIX 100 MG IV ×2 (06:23→18:23)
[2022-10-22 07:27] VITALS: BP 130/85; PULSE 75; RESP 16; TEMP 36.7; O2SAT 96
--- NOTE | 2022-10-22 07:50 | PM.OBGYHP ---
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 Review of Systems Const: Denies: fever(s) or chills ENMT: Denies: throat pain or dental pain Card: Denies: chest pain Resp: Denies: dyspnea GI: Reports: abdominal pain; Denies: nausea or vomiting : Reports: pelvic pain; Denies: dysuria, urinary frequency or urinary urgency Musc: Denies: neck pain or back pain Skin/Breast: Denies: rash Neuro: Denies: headache(s) Medications/Allergies Home Medications Medication Instructions Recorded Confirmed Last Taken Type cetirizine 10 mg tablet 10 mg PO DAILY PRN Allergy Symptoms 09/28/20 10/22/22 Unknown History ibuprofen 800 mg tablet 800 mg PO Q8H PRN Pain 10/21/22 10/22/22 Unknown History tramadol 50 mg tablet 50 mg PO Q6H PRN Pain 10/21/22 10/22/22 Unknown History albuterol sulfate 90 mcg/actuation 2 puff inhalation Q6H PRN 10/22/22 10/22/22 Unknown History aerosol inhaler Shortness Of Breath ciprofloxacin HCl 500 mg tablet 500 mg PO Q12H 10/22/22 10/22/22 10/21/22 10:00 History montelukast 10 mg tablet 10 mg PO BEDTIME 10/22/22 10/22/22 Unknown History norgestimate-ethinyl estradiol 1 tab PO QAM 10/22/22 10/22/22 Unknown History 0.18 mg/0.215mg/0.25mg-35 mcg(28)tablet tamsulosin 0.4 mg capsule 0.4 mg PO DAILY 10/22/22 10/22/22 10/21/22 10:00 History Allergies Allergy/AdvReac Type Severity Reaction Status Date / Time Pork/Porcine Containing Allergy ALGY-Rash Verified 10/21/22 17:24 Products PFSH QUANTITATIVE ASSOCIATE PFSH: Medical History Asthma COOPER III (cervical intraepithelial neoplasia III) 05/2015: COOPER 3 - Treated by cervical cone (possibly LEEP) per patient. 11/20/2016: Patient reports having had a follow-up pap smear at approx 6 months after treatment. She is unsure of the results. Plan pap smear after delivery. Contraception management She was counseled regarding again missed AB and all treatment modalities. Was counseled hCG continue to decrease and she declined any bleeding. Patient elected expectant/conservative management. Quantitative hCG now negative. Patient refers she wants to start using OCPs. She was counseled regarding all methods of contraception. She wants to proceed start using OCPs she was counseled regarding starting OCPs. Follow-up in 3 months Patient denies medical problems Denies history of: high blood pressure, diabetes, heart, lung, liver, kidney, thyroid, bleeding problems, or clotting problems Sickle cell anemia (~2009) Surgical History H/O section 08/13/2020- repeat delivery, performed by Dr. Villalpando at [facility] History of cholecystectomy (~2015) History of dilation and curettage (~05/2015) Performed at time of cervical cone per patient. Performed in [facility] Previous section (~04/2017) Family History Grandmother Hyperlipidemia Maternal Hypertension Maternal Diabetes Maternal Breast cancer Maternal Grandfather Diabetes paternal Colon cancer Maternal Family/Other Breast cancer Paternal aunt, paternal cousin Patient denies medical problems Denies family history of: heart disease, stroke, thyroid problems, ovarian cancer, or uterine cancer Social History Substance/Drug Use: never Additional social history: - Tobacco use: Denies Alcohol use: Denies Drug use: Denies Other Female Reproductive History: Hx Age of Menarche: 10 History History History 3 Term 2 0 Miscarriages/Ectopic 1 Living Children 2 Vitals/I&O/Wt Last Vital Signs Temp 99.0 F 10/23/22 08:09 Pulse 83 10/23/22 08:09 Resp 16 10/23/22 08:09 BP 128/82 10/23/22 08:09 Pulse Ox 98 10/23/22 08:09 O2 Del Method Room Air 10/23/22 08:09 10/22/22 10/23/22 10/23/22 22:59 06:59 14:59 Intake Total 680 / 900 370 / 370 Balance 680 / 900 370 / 370 Weight last 48 hrs Weight 89.811 kg Physical Exam Const: COMMON NORMALS: no acute distress, average body habitus and patient oriented x3 GENERAL APPEARANCE: cooperative and well kempt HENMT: COMMON NORMALS: normocephalic and atraumatic HEAD & SCALP: normocephalic and atraumatic Neck/C-Spine: COMMON NORMALS: full ROM Chest: COMMONS NORMALS: normal inspection of the chest Resp: COMMON NORMALS: normal respiratory effort Cardio: COMMON NORMALS: regular rate and regular rhythm RATE: regular rate RHYTHM: regular rhythm GI: INSPECTION: Yes normal to inspection Neuro: COMMON NORMALS: patient oriented x3 Psych: APPEARANCE: Yes well kempt Data 10/21/22 18:39 10/21/22 18:39 Micro: Microbiology 10/21/22 18:39 Blood Culture - Preliminary Blood NEGATIVE TO DATE A&P Assessment and plan (1) Tubo-ovarian abscess: Mrs. Melendez 27-year-old female counseled regarding ultrasound findings suggestive of possible tubo-ovarian abscess versus hydrosalpinx of the right fallopian tube. She was advised of medical management with IV antibiotic treatment for 48 hours if no response then possible surgical management. Attestations Medical Necessity Statement*: In my professional opinion per admitting diagnosis Coding Level of Care Code Acute Code for [facility] Diagnoses Tubo-ovarian abscess N70.93
[2022-10-22] MEDS: ibuprofen 800 mg tablet PO ×2 (08:29→18:23)
[2022-10-22 12:00] VITALS: BP 128/80; PULSE 91; RESP 16; TEMP 37; O2SAT 97
[2022-10-22 16:00] VITALS: BP 117/78; PULSE 95; RESP 18; TEMP 36.5; O2SAT 97
[2022-10-22 19:35] VITALS: BP 126/80; PULSE 84; RESP 17; TEMP 36.6; O2SAT 95
[2022-10-22] MEDS: cefTRIAXone 1,000 MG in sodium chloride 0.9% (plus) 50 ML 100 MG IV (20:10)
[2022-10-22 23:48] VITALS: BP 109/68; PULSE 93; RESP 16; TEMP 36.6; O2SAT 96
[2022-10-23 04:00] VITALS: BP 116/73; PULSE 74; RESP 16; TEMP 36.6; O2SAT 95
[2022-10-23] MEDS: doxycycline 100 MG in sodium chloride 0.9% (plus) 100 ML IV (05:57)
[2022-10-23] MEDS: metroNIDAZOLE IV 500 MG/100 ML PREMIX 100 MG IV (05:58)
[2022-10-23 08:09] VITALS: BP 128/82; PULSE 83; RESP 16; TEMP 37.2; O2SAT 98
[2022-10-23] MEDS: ibuprofen 800 mg tablet PO (08:21)
--- NOTE | 2022-10-23 09:11 | PM.OBGYDC ---
Discharge Providers [employer] SOCIAL WORKER Date of Admission: 10/21/22 20:16 Date of Discharge: 10/23/22 Attending Provider at Admission: Rashaad Villalpando MD Attending Provider at Discharge: Rashaad Villalpando MD Primary [employer] SOCIAL WORKER: Rashaad Villalpando MD Primary Care Provider: Kristie Stewart APN Diagnoses at Discharge Discharge Diagnosis (1) Tubo-ovarian abscess: Status: Acute Reason for Visit Reason for Visit: Kwasi sent for TOA Brief History: Mrs. Armenta 27-year-old female with pelvic pain Hospital Course Hospital Course Mrs. Hernandez 27-year-old female came to the emergency room due to pelvic pain during evaluation on ultrasound so suggestive of TOA on the right side. She was admitted for IV antibiotics for 48 hours and symptoms have improved. We will continue with oral antibiotics for 14 days and reevaluation at the clinic was recommended. Physical Exam Const: COMMON NORMALS: no acute distress, average body habitus and patient oriented x3 GENERAL APPEARANCE: cooperative and well kempt HENMT: COMMON NORMALS: normocephalic and atraumatic HEAD & SCALP: normocephalic and atraumatic Neck/C-Spine: COMMON NORMALS: full ROM Chest: COMMONS NORMALS: normal inspection of the chest Resp: COMMON NORMALS: normal respiratory effort Cardio: COMMON NORMALS: regular rate and regular rhythm RATE: regular rate RHYTHM: regular rhythm GI: INSPECTION: Yes normal to inspection Neuro: COMMON NORMALS: patient oriented x3 Psych: APPEARANCE: Yes well kempt History History History 3 Term 2 0 Miscarriages/Ectopic 1 Living Children 2 Discharge Data Studies Completed and Pending Completed Studies During Hospitalization Category Date Time Status US transvaginal 51790 Stat Ultrasound 10/21/22 17:45 Completed Pending at discharge Category Date Time Status Blood Culture Stat Lab 10/21/22 18:39 Results Urine Culture Stat Lab 10/21/22 18:30 Received Radiology Impressions Transvaginal US 10/21/22 17:45 IMPRESSION: 1. There is flow in the left ovary on Doppler imaging. Resistive index in the left ovary is mildly elevated measuring 0.81 however, which can be seen with ovarian torsion. Recommend clinical correlation. 2. Heterogeneity of the cervix with cystic and solid components is stable compared with the prior ultrasound. Etiology is uncertain, continued clinical follow-up to rule out a possible cervical mass is recommended. May also consider direct visualization. 3. Mildly dilated right fallopian tube. No abnormal flow on Doppler imaging. ADDENDUM: 10/21/221958 THIS REPORT CONTAINS FINDINGS THAT MAY BE CRITICAL TO PATIENT CARE. The findings were verbally communicated via telephone conference with VANCE Greenberg at 7:58 PM CDT on 10/21/2022. The findings were acknowledged and understood. Laboratory Results WBC 7.7 10^3/uL (4.0-10.0) 10/21/22 18:39 RBC 5.36 10^6/uL (4.1-5.3) H 10/21/22 18:39 Hgb 14.5 g/dL (11.5-15.3) 10/21/22 18:39 Hct 43.9 % (37.0-47.0) 10/21/22 18:39 MCV 81.9 fl (81-99) 10/21/22 18:39 MCH 27.1 pg (28.0-34.0) L 10/21/22 18:39 MCHC 33.0 g/dL (30.0-36.0) 10/21/22 18:39 RDW 13.1 % (12.1-15.1) 10/21/22 18:39 Plt Count 196 10^3/cmm (130-400) 10/21/22 18:39 MPV 12.2 fL (7.4-10.4) H 10/21/22 18:39 Neut % (Auto) 61.9 % 10/21/22 18:39 Lymph % (Auto) 27.0 % 10/21/22 18:39 [place] % (Auto) 5.2 % 10/21/22 18:39 Eos % (Auto) 4.8 % 10/21/22 18:39 Baso % (Auto) 0.6 % 10/21/22 18:39 Neut # (Auto) 4.76 10^3/uL (1.8-7.7) 10/21/22 18:39 Lymph # (Auto) 2.1 10^3/uL (0.8-4.8) 10/21/22 18:39 [place] # (Auto) 0.4 10^3/uL (0.2-0.9) 10/21/22 18:39 Eos # (Auto) 0.4 10^3/uL (0.0-0.8) 10/21/22 18:39 Baso # (Auto) 0.1 10^3/uL (0.0-0.1) 10/21/22 18:39 Nucleated RBC % (auto) 0 % 10/21/22 18:39 Nucleated RBCs # 0.0 /100WBC 10/21/22 18:39 Sodium 141 mmol/L (136-145) 10/21/22 18:39 Potassium 3.9 mmol/L (3.5-5.1) 10/21/22 18:39 Chloride 105 mmol/L (98-107) 10/21/22 18:39 Carbon Dioxide 22 mmol/L (22-29) 10/21/22 18:39 Anion Gap 17.9 (5-19) 10/21/22 18:39 BUN 11 mg/dL (6-20) 10/21/22 18:39 Creatinine 0.7 mg/dL (0.5-0.9) 10/21/22 18:39 GFR Calculation 99.6 mL/min (90-130) 10/21/22 18:39 Glucose 98 mg/dL (65-115) 10/21/22 18:39 Calculated Osmolality 291 mOsm/kg (285-295) 10/21/22 18:39 Calcium 9.2 mg/dL (8.5-10.5) 10/21/22 18:39 Total Bilirubin 0.2 mg/dL (0.15-1.2) 10/21/22 18:39 AST 22 U/L (0-32) 10/21/22 18:39 ALT 25 U/L (0-33) 10/21/22 18:39 Alkaline Phosphatase 84 U/L (35-105) 10/21/22 18:39 Total Protein 7.3 g/dL (6.6-8.7) 10/21/22 18:39 Albumin 4.3 g/dL (3.5-5.2) 10/21/22 18:39 Globulin 3.0 g/dL (1.3-4.6) 10/21/22 18:39 Lipase 26 U/L (13-60) 10/21/22 18:39 HCG, Qual Negative (Negative) 10/21/22 18:39 Urine Color Yellow (Yellow) 10/21/22 18:30 Urine Appearance Cloudy (CLEAR) A 10/21/22 18:30 Urine pH 5 (5-7) 10/21/22 18:30 Ur Specific [place] 1.025 (1.005-1.030) 10/21/22 18:30 Urine Protein Trace (Negative) 10/21/22 18:30 Urine Glucose (UA) Norm (Normal) 10/21/22 18:30 Urine Ketones Negative (Negative) 10/21/22 18:30 Urine Blood 3+ (Negative) H 10/21/22 18:30 Urine Nitrate Negative (Negative) 10/21/22 18:30 Urine Bilirubin Neg (Negative) 10/21/22 18:30 Urine Urobilinogen Norm mg/dL (Negative) 10/21/22 18:30 Ur Leukocyte Esterase Trace (Negative) H 10/21/22 18:30 Urine RBC >100 /hpf (0-2) H 10/21/22 18:30 Urine WBC 15-25 /hpf (0-5) H 10/21/22 18:30 Ur Squamous Epith Cells 0-4 /hpf (0-5) H 10/21/22 18:30 Amorphous Sediment Not Reportable 10/21/22 18:30 Urine Bacteria Trace /hpf (NONE) 10/21/22 18:30 Urine Mucus 1+ /hpf 10/21/22 18:30 Vitals Last Vital Signs Temp 99.0 F 10/23/22 08:09 Pulse 83 10/23/22 08:09 Resp 16 10/23/22 08:09 BP 128/82 10/23/22 08:09 Pulse Ox 98 10/23/22 08:09 O2 Del Method Room Air 10/23/22 08:09 Discharge Plan Discharge Patient Disposition: Home Condition: Stable Prescriptions: New metronidazole 500 mg tablet 500 mg PO BID 14 Days Qty: 28 0RF levofloxacin 500 mg tablet 500 mg PO DAILY 14 Days Qty: 14 0RF fluconazole [Diflucan] 150 mg tablet 150 mg PO DAILY Qty: 1 0RF Rx Instructions: administer on day 1 of therapy Continued cetirizine 10 mg tablet 10 mg PO DAILY PRN (Reason: Allergy Symptoms) ibuprofen 800 mg tablet 800 mg PO Q8H PRN (Reason: Pain) tramadol 50 mg tablet 50 mg PO Q6H PRN (Reason: Pain) ciprofloxacin HCl 500 mg tablet 500 mg PO Q12H Rx Instructions: for 7 days (rx filled 10/17/22) tamsulosin 0.4 mg capsule 0.4 mg PO DAILY Rx Instructions: for 14 days (rx filled 10/17/22) norgestimate-ethinyl estradiol 0.18/0.215/0.25 mg-35 mcg (28) tablet 1 tab PO QAM montelukast 10 mg tablet 10 mg PO BEDTIME albuterol sulfate 90 mcg/actuation HFA aerosol inhaler 2 puff INHALATION Q6H PRN (Reason: Shortness Of Breath) Discharge Orders: Discharge Order (Routine); Ordered 10/23/22 Ordered By: Rashaad Villalpando Referrals: Kristie Stewart APN [Primary Care Provider] - Discharge Diet: Usual diet Discharge Activity: Limit activity as instructed Patient Instructions: Opioid Safety, Pelvic Inflammatory Disease (GEN), Ovarian Abscess (ED) Activity Restrictions/Additional Instructions: Pelvic rest for 6 weeks (no sex, no tampons, no vaginal douches). Return to the emergency room if any fever, increased bleeding or pain. Discharge Attestations [employer] WORKER Time Spent in Discharge Care*: greater than 30 min Coding Level of Care Code Acute Code for Chg Fwd Diagnoses Tubo-ovarian abscess N70.93
== END 2022-10-23 10:58 | disposition home or self-care (01) | DRG 759 ==
LOC: ER 19:28 → MEDSURG 19:45
PROVIDERS: Admitting Provider Obstetrics & Gynecology; Emergency Provider Emergency Medicine; PCP Nurse Practitioner Family; Visit Provider Obstetrics & Gynecology
DX: N70.93 Salpingitis and oophoritis, unspecified (principal); Z79.891 Long term (current) use of opiate analgesic; Z79.51 Long term (current) use of inhaled steroids; J45.909 Unspecified asthma, uncomplicated
CPT/HCPCS: 76830; 80053; 81001; 83690; 84703; 85025; 87040; 87086; 96365; 96366; 96367; 96375; 99285; J0696; J2270; J2405; J3490

== ENCOUNTER → 2022-10-27 14:00 | Outpatient (BNVA) | payer BC, MEDICAID, SELFPAY | PROVIDERS: PCP Nurse Practitioner Family; Visit Provider Obstetrics & Gynecology | DX: N70.93 Salpingitis and oophoritis, unspecified (principal) | CPT/HCPCS: 87624 ==

== ENCOUNTER → 2022-11-03 15:58 | Outpatient (BNVA) | payer BC, MEDICAID, SELFPAY | PROVIDERS: PCP Nurse Practitioner Family; Visit Provider Obstetrics & Gynecology | DX: N83.9 Noninflammatory disorder of ovary, fallopian tube and broad ligament, unspecified (principal) | CPT/HCPCS: 76830 ==

== ENCOUNTER 2022-11-07 09:35 | Outpatient (CLI) | payer BC, MEDICAID, SELFPAY ==
--- NOTE | 2022-11-07 09:30 | US_ITS ---
WS: [id number] ULTRASOUND PELVIS TECHNIQUE: Transvaginal. CLINICAL INFORMATION: N70.93 - Salpingitis and oophoritis, unspecified COMPARISON: Ultrasound 11/03/2022 and 10/21/2022 FINDINGS: Uterus Orientation: Anteverted. Size: 8.4 x 5.1 x 4.5 cm Masses: None. Prior scar Cervix: Fluid and thickening Endometrium: Normal. Endometrium thickness: 3.1mm Adnexa: Previously described complex tubular-like area in the RIGHT adnexa appears improved today. No definite abscess or hydrosalpinx seen today. Associated vascularity in this area which is likely due to small bowel. Right ovary size: 2.5 x 3.2 x 2.1 cm Left ovary size: 1.5 x 2.8 x 2.7 cm. Free fluid: Trace Other findings: None. US/US transvaginal [id number] IMPRESSION: 1. Previously described serpiginous dilated tubular-like structure in the RIGH T adnexa has improved and appears decompressed today compared to previous. No d efinite visualized hydrosalpinx or abscess today. RIGHT ovary has a normal appe arance today. There is adjacent small bowel in this area. 2. Anteverted uterus with normal endometrium. 3. Thickening of the cervix with fluid is unchanged in appearance. Some this m ay be due to prior ablation. 4. Normal LEFT ovary.
== END 2022-11-07 09:36 | disposition home or self-care (01) ==
LOC: RAD 09:35
PROVIDERS: PCP Nurse Practitioner Family; Visit Provider Obstetrics & Gynecology
DX: N70.93 Salpingitis and oophoritis, unspecified (principal)
CPT/HCPCS: 76830

== ENCOUNTER 2022-12-12 10:48 | Outpatient (CLI) | payer BC, SELFPAY ==
--- NOTE | 2022-12-12 10:15 | US_ITS ---
WS: [id number] Pelvic ultrasound, 12/12/2022 Clinical Data: R10.2 - Pelvic and perineal pain Comparison: Pelvic ultrasound, 11/07/2022 Findings: The uterus measures 8.47 cm x 5.28 cm x 4.13 cm. The endometrium is normal. No intrauterine or abnormal intrauterine mass is seen. The cervical length was not measured. The left ovary was not measured. The right ovary measures 2.90 cm x 2.99 cm x 1.51 cm with no cysts or masses. There was a tubular structure in the right adnexa with flow. No abscess was seen. There is no fluid in the cul-de-sac. Impression: No change in tubular structure in right adnexa.
== END 2022-12-12 10:49 | disposition home or self-care (01) ==
PROVIDERS: PCP Nurse Practitioner Family; Visit Provider Obstetrics & Gynecology
DX: R10.2 Pelvic and perineal pain (principal)
CPT/HCPCS: 76830; 76856

== ENCOUNTER 2023-02-03 10:35 | Day surgery (SDC) | payer BC, SELFPAY ==
[2023-02-02 10:15] LABS: Basophils % 0.7 %; Eosinophils # 0.3 10^3/uL (0.0-0.8); Eosinophils % 5.1 %; Hematocrit 40.9 % (36-47); Lymphocytes # 1.7 10^3/uL (0.8-4.8); Lymphocytes % 28.3 %; Mean Corpuscular HGB Conc 33.7 g/dL (30-55); Mean Corpuscular Hemoglobin 27.7 pg (27-33); Mean Platelet Volume 11.8 fL (7.4-10.4); Monocytes # 0.3 10^3/uL (0.2-0.9); Monocytes % 5.1 %; Neutrophils # 3.59 10^3/uL (1.8-7.7); Neutrophils % 60.5 %; Nucleated Red Blood Cells % 0 %; Platelet Count 170 10^3/cmm (157-399); Red Blood Count 4.99 10^6/uL (3.85-5.65); Red Cell Distribution Width 13.5 % (12.1-15.1); White Blood Count 5.93 10^3/uL (3.29-11.43)
--- NOTE | 2023-02-02 16:10 | ANES.PREANE2 ---
Pre-Anesthetic Assessment Height/Weight: Height 1.57 m Operation Date: 02/03/23 12:20 Proposed Procedures p Laparoscopic bilateral salpingectomy 12486,Z30.2(Bilateral) - Rashaad Villalpando MD Familial anesthetic complications: Alpha GAL Was Beta Terrie taken within 24 hours: N/A Was Clonidine taken within 24 hours: N/A Social No alcohol and No tobacco Exam alert, oriented x 3, clear to auscultation bilaterally and regular rate & rhythm Airway Submandibular: within normal limits Cervical ROM: within normal limits Mallampati: Class II Dentition: full Pulmonary Asthma Anesthetic Plan ASA status: 2 Anesthesia: General Medications/Allergies Home Medications Medication Instructions Recorded Confirmed Last Taken Type ibuprofen 800 mg tablet 800 mg PO Q8H PRN Pain 10/21/22 02/02/23 02/02/23 History albuterol sulfate 90 mcg/actuation 2 puff inhalation Q6H PRN 10/22/22 02/02/23 02/02/23 History aerosol inhaler Shortness Of Breath montelukast 10 mg tablet 10 mg PO BEDTIME 10/22/22 02/02/23 02/02/23 History norgestimate-ethinyl estradiol 1 tab PO QAM 10/22/22 02/02/23 02/02/23 History 0.18 mg/0.215mg/0.25mg-35 mcg(28)tablet cetirizine 10 mg tablet 10 mg PO DAILY Allergy Symptoms 02/02/23 02/02/23 02/02/23 History Allergies Allergy/AdvReac Type Severity Reaction Status Date / Time Alpha-Gal Allergy Severe ALGY-Anaphy Verified 02/02/23 09:49 ([id number]-4,3-Gala laxis Pork/Porcine Containing Allergy Severe ALGY-Anaphy Verified 02/02/23 09:49 Products laxis [facility] Anesthesia Medical History Asthma COOPER III (cervical intraepithelial neoplasia III) 05/2015: COOPER 3 - Treated by cervical cone (possibly LEEP) per patient. 11/20/2016: Patient reports having had a follow-up pap smear at approx 6 months after treatment. She is unsure of the results. Plan pap smear after delivery. Contraception management She was counseled regarding again missed AB and all treatment modalities. Was counseled hCG continue to decrease and she declined any bleeding. Patient elected expectant/conservative management. Quantitative hCG now negative. Patient refers she wants to start using OCPs. She was counseled regarding all methods of contraception. She wants to proceed start using OCPs she was counseled regarding starting OCPs. Follow-up in 3 months Patient denies medical problems Denies history of: high blood pressure, diabetes, heart, lung, liver, kidney, thyroid, bleeding problems, or clotting problems Sickle cell anemia (~2009) Surgical History H/O section 08/13/2020- repeat delivery, performed by Dr. Villalpando at [facility] History of cholecystectomy (~2015) History of dilation and curettage (~05/2015) Performed at time of cervical cone per patient. Performed in [facility] Previous section (~04/2017) Family History Grandmother Hyperlipidemia Maternal Hypertension Maternal Diabetes Maternal Breast cancer Maternal Grandfather Diabetes paternal Colon cancer Maternal Family/Other Breast cancer Paternal aunt, paternal cousin Patient denies medical problems Denies family history of: heart disease, stroke, thyroid problems, ovarian cancer, or uterine cancer Social History Substance/Drug Use: never Additional social history: - Tobacco use: Denies Alcohol use: Denies Drug use: Denies Data Anesthesia 02/02/23 10:00 Short CBC 02/02/23 Range/Units 10:00 WBC 5.93 (3.29-11.43) 10^3/uL Hgb 13.80 (11.27-16.99) g/dL Hct 40.9 (36-47) % MCV 82.0 L (85-98) fl Plt Count 170 (157-399) 10^3/cmm Neut % (Auto) 60.5 % Neut # (Auto) 3.59 (1.8-7.7) 10^3/uL Cardiac Studies: No Data to Display
[2023-02-03] VITALS (9 sets, daily range): BP systolic 108–136; BP diastolic 51–89; PULSE 68–104; RESP 16–21; TEMP 36.1–36.4; O2SAT 92–98
--- OUTSIDE RECORDS SUMMARY | 2023-02-03 10:38 | XMS_ITS ---
Author Name Maykel Tate Address [address] [facility] [address] [place] [address] Organization [facility] Address [address] [facility] [address] [place] [address] Care Team Providers Care Chemical Research Engineer Name Role Phone Maykel Tate Primary Care [...] Date [place] [id number] N/A History of Encounters Visit Date Visit Type Provider 04/22/2016 Gynecological Maykel Fischer
--- OUTSIDE RECORDS SUMMARY | 2023-02-03 10:38 | XMS_ITS | Patient Health Record ---
Author Name Unknown Organization [facility] Address [address] [place] [address] Care Team Providers Care Rn Hematology Name Role Phone Kristie Stewart Primary Care Provider KRISTIE STEWART Unavailable Unavailable Nithya Bee Unavailable [phone] Anne Knight Unavailable [phone] ALLERGIES No Known Allergies RESULTS Component Value Reference Range Notes Urinalysis--[id number] Reviewed date:02/04/2022 03:33:34 PM Interpretation: Performing Lab: Notes/Report: Normal UA Specific gravity UA 1.015 Urine Nitrite negative Color UA yellow Urine Blood negative Clarity UA clear Urine pH 7.0 Urine Glucose negative Urine Leukocyte negative Urine Protein negative Urine Bilirubin negative Urine Ketone negative Urobilinogen Comprehensive Metabolic Pane l [id number] Reviewed date:02/05/2022 10:32:40 AM Interpretation: Performing Lab: Notes/Report: Diagnosis Description: Low back pain, unspecified Glucose Serum 123 71-110 MG/DL BUN 8 7-21 MG/DL Creat .65 .51-1.17 MG/DL B-zeqsav-v-benzoquinone imine (NAPQI) is a metabolite of acetaminophen, NAPQI concentrations of apparoximately 10 mg/L correlation to toxic levels of acetaminophen demonstrates a greater than or equil to 10% change in results. NAPQI concentrations greater than this may lead to falsely depressed results for patient samples. Use of this assay is not recommended for patients undergoing treatment with phenindione, due to the potential for falsely depressed results. GFR 122.9 Calculation per formed from GFR calculator provided by the [employer]. Glomerular Filtration rate(GRF) is the best overall index of kidney function. Normal GFR varies according to age,sex, body size, and declines with age. The [employer] recommends using the CKD-EPI Creatinine Equation(2009) to estimate GFR. BUN/Creat Ratio 12.3 12.0-20.0 % Total Protein 6.9 5.8-8.0 G/DL Albumin 4.2 3.2-4.8 G/DL Globulin 2.7 2.3-3.5 G/DL Alb/Glob 1.6 0.8-2.2 Calcium 9.3 8.7-10.4 MG/DL Sodium 138 136-145 MMOL/L Potassium 3.7 3.5-5.1 MMOL/L Chloride 103 98-107 MMOL/L CO2 22.9 20.0-31.0 MMOL/L Anion Gap 16 5-15 Alk Phos 71 46-116 Bili Total .2 .3-1.2 MG/DL Use of this ass ay is not recommended for patients undergoing treatment with eltrombopag due to the potential for falsely elevated results. AST/SGOT 17 15-37 UNIT/L ALT/SGPT 9 12-78 UNIT/L Osmo Serum,Calculated 286 280-300 MOSM/KG CBC w\ Auto Diff [id number] Reviewed date:02/05/2022 10:32:59 AM Interpretation: Performing Lab: Notes/Report: Diagnosis Description: Personal history of diseases of the blood and blood- forming organs and certain disorders involving the immune mechanism WBC 9.1 4.5-11.0 X10'3 RBC 4.94 4.00-5.20 X10'6 Hgb 13.2 12.0-16.0 G/DL Hct 40.7 36.0-46.0 % MCV 82.4 80.0-100.0 FL MCH 26.7 27.0-31.0 PG MCHC 32.4 31.0-37.0 G/DL Platelet 208 150-400 X10'3 RDW-SD 39.0 35.0-49.0 FL RDW-CV 13.0 12.2-15.6 % MPV 12.9 9.2-12.0 FL Neutro Auto% 58.3 42.0-75.0 % Lymph Auto% 24.5 20.0-51.0 % [place] Auto% 6.2 1.7-9.3 % Eos Auto% 9.8 .0-6.0 % Baso Auto% 0.7 0.0-1.0 % Imm Gran% .5 .0-.4 % Neutro Abs 5.31 .80-7.70 Lymph Abs 2.23 .10-4.10 [place] Abs .56 .20-1.00 Eos Abs .89 .00-.40 Baso Abs .06 .00-.10 Imm Gran Abs .05 .00-.10 NRBC# .00 .00-.20 X10'3 NRBC% .00 .00-.20 /100 int act WBC's KUB Reviewed date:07/28/2022 03:30:14 PM Interpretation: Performing Lab: Notes/Report: CBC w\ Auto Diff [id number] Reviewed date:10/20/2022 07:40:22 AM Interpretation: Performing Lab: Notes/Report: Diagnosis Description: Right lower quadrant pain WBC 6.8 4.5-11.0 X10'3 RBC 4.81 4.00-5.20 X10'6 Hgb 13.1 12.0-16.0 G/DL Hct 39.1 36.0-46.0 % MCV 81.3 80.0-100.0 FL MCH 27.2 27.0-31.0 PG MCHC 33.5 31.0-37.0 G/DL Platelet 215 150-400 X10'3 RDW-SD 39.2 35.0-49.0 FL RDW-CV 13.2 12.2-15.6 % MPV 12.4 9.2-12.0 FL Neutro Auto% 52.2 42.0-75.0 % Lymph Auto% 33.0 20.0-51.0 % [place] Auto% 8.4 1.7-9.3 % Eos Auto% 5.3 .0-6.0 % Baso Auto% 0.7 0.0-1.0 % Imm Gran% .4 .0-.4 % Neutro Abs 3.56 .80-7.70 Absolute Neutrophil Count 3560 Lymph Abs 2.25 .10-4.10 [place] Abs .57 .20-1.00 Eos Abs .36 .00-.40 Baso Abs .05 .00-.10 Imm Gran Abs .03 .00-.10 NRBC# .00 .00-.20 X10'3 NRBC% .00 .00-.20 /100 int act WBC's Urinalysis--[id number] Reviewed date:10/16/2022 04:14:42 PM Interpretation: Performing Lab: Notes/Report: Normal UA Specific gravity UA 1.020 Urine Nitrite negative Color UA yellow Urine Blood negative Clarity UA clear Urine pH 6.0 Urine Glucose negative Urine Leukocyte negative Urine Protein negative Urine Bilirubin negative Urine Ketone negative Urobilinogen CT Abdomen, Pelvis w/ Contra st-[id number] Reviewed date:10/20/2022 11:41:15 AM Interpretation: Performing Lab: Notes/Report: US Pelvis Transvaginal-[id number] Reviewed date:11/04/2022 08:49:36 AM Interpretation: Performing Lab: Notes/Report: Urinalysis--[id number] Reviewed date:01/19/2023 04:12:31 PM Interpretation: Performing Lab: Notes/Report: Normal UA Specific gravity UA 1.020 Urine Nitrite negative Color UA yellow Urine Blood negative Clarity UA cloudy Urine pH 6.0 Urine Glucose negative Urine Leukocyte negative Urine Protein negative Urine Bilirubin negative Urine Ketone negative Urobilinogen REASON FOR REFERRAL Reason hydronephrosis, hors eshoe kidney Diagnosis 1 Hydronephrosis, unsp ecified hydronephrosis type (N13.30) Referring Provider First Name Kristie Referring Provider Last Name Terry Referring Provider Speciality Nurse Briana tee Referred Organization [facility] Referred Provider Nithya Bee Referred Address [address], [place], [place],[address], Referred Provider Specialty Nurse Liu holley Referral Priority Routine Reason hydronephrosis, hors eshoe kidney Diagnosis 1 Hydronephrosis, unsp ecified hydronephrosis type (N13.30) Referral Organization [facility] Referring Provider First Name Kristie Referring Provider Last Name Terry Referring Provider Speciality Nurse Briana tee Referred Provider Charly Garcia Referred Provider Specialty Nephrology General Notes Melisa Greenberg 10/23 07:01:57 AM >P2P sent Referral Priority Routine Reason Hemorroids Diagnosis 1 Hemorrhoids (K64.9) Referral Organization [facility] Office Referring Provider First Name Kristie Referring Provider Last Name Terry Referring Provider Speciality Nurse Prac nay Referred Provider John Tan Referred Provider Specialty General Surg gerhard General Notes Melisa Greenberg 02/02 03:04:07 PM >faxed to Dr Tan office Referral Priority Routine MEDICATIONS Medication SIG (Take, Route, Frequency, Duration) Notes Start Date End Date Status Polyethylene Glycol 3350 17 GM 1 packet mixed with 8 ounces of fluid Orally Once a day as needed for 30 days 01/19/2023 05/18/2023 Active SOCIAL HISTORY Tobacco Use: Social History Observation Description Date Details (start date - stop date) Never Smoker NA - NA Sex Assigned At : Social History Observation Description Sex Assigned At Unknown Tobacco Use/Smoking Question Answer Notes Are you a nonsmoker Alcohol Screen (Audit-C) Question Answer Notes Did you have a drink containing alcohol in the p ast year? 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) Active confirmed 75698810 Problem Moderate persistent asthma with exacerbation (J45.41) Active confirmed 430879444 Problem Seasonal allergies (J30.2) Active confirmed 756914769 Problem Constipation (K59.00) Active confirmed Constipation (18145438) Problem History of anemia (Z86.2) Active confirmed 201439444 Problem Moderate persistent asthma without complication (J45.40) Active confirmed 549810356 Problem Sinusitis (J32.9) Active confirmed Sinusitis (25189756) Problem Vitamin D deficiency (E55.9) Active confirmed 96099679 VITAL SIGNS Heart Rate 73 /min 02/02/2023 Temperature 98.2 degrees Fahrenheit 02/02/2023 Respiratory Rate 20 /min 02/02/2023 Height-cm 160.02 cm 02/02/2023 Oximetry 100 % 02/02/2023 Blood pressure diastolic 76 mm Hg 02/02/2023 Weight-kg 89.36 kg 02/02/2023 Height 63 in 02/02/2023 Blood pressure systolic 118 mm Hg 02/02/2023 Weight 197 lbs 02/02/2023 BMI 34.89 kg/m2 02/02/2023 Encounters Encounter Location Date Provider Diagnosis [facility] [address] [place] [address] 02/06/2022 Kristie [facility] [place] [facility] [address] [place] [address] 05/23/2022 Kristie Terry [facility] [address] [place] [address] 07/18/2022 [facility] [address] [place] [address] 10/17/2022 Kristie Terry Left flank discomfor t R10.9 [facility] [address] [place] [address] 10/20/2022 Kristie Stewart Right lower quadrant abdominal pain R10.31 [facility] [place] [address] [place] [address] 10/21/2022 Kristierylee Stewart [facility] [place] [address] [place] [address] 10/22/2022 Kristie Terry Hydronephrosis, unspecified hydronephrosis type N13.30 [facility] [place] [address] [place] [address] 11/12/2022 Kristie Stewart Right lower quadrant abdominal pain R10.31 [facility] [place] [address] [place] [address] 10/29/2022 [facility] Stewart [facility] [address] [place] [address] 01/26/2023 Kristie [facility] [place] [facility] [address] [place] [address] 01/30/2023 Anne Knight Constipation K59.00 [facility] [address] [place] [address] 12/15/2022 [facility] [address] [place] [address] 12/18/2022 Kristie [facility] [address] [place] [address] 01/13/2023 Kristie [facility] [address] [place] [address] 02/04/2022 Kristie Stewart Dermatitis of face L30.9 ; Acute bilateral low back pain without sciatica M54.50 and History of anemia Z86.2 [facility] [address] [place] [address] 01/15/2023 Nithya Bee [facility] [address] [place] [address] 01/19/2023 Kristie Stewart Constipation K59.00 and Yeast infection B37.9 [facility] [address] [place] [address] 02/02/2023 Kristie Stewart Hemorrhoids K64.9 [facility] [address] [place] [address] 11/04/2022 Kristie Stewart [facility] [address] [place] [address] 07/24/2022 Kristie Stewart UTI (urinary tract infection) N39.0 and Hematuria R31.9 [facility] [address] [place] [address] 10/16/2022 Kristie Stewart Right lower quadrant abdominal pain R10.31 [facility] [address] [address] 06/05/2022 Kristie Stewart Sinusitis J32.9 and control Z78.9 [facility] [address] [facility] [address] [place] [address] 10/29/2022 Kristie Stewart ASSESSMENTS Encounter Date Diagnosis Assessment Notes Treatment Notes Treatment Clinical Notes 02/04/2022 Dermatitis of face (ICD-10 - L30.9) 02/04/2022 Acute bilateral low back pain without sciatica (ICD-10 - M54.50) 06/05/2022 Sinusitis (ICD-10 - J32.9) Increase fluids, take medication as directed. RTC if no improvement with treatment. 06/05/2022 control (ICD-10 - Z78.9) 07/24/2022 UTI (urinary tract infection) (ICD-10 - N39.0) Increase fluids, take medication as directed. RTC if no improvement with treatment. 07/24/2022 Hematuria (ICD-10 - R31.9) Pt will go to [facility] for KUB in am. 10/16/2022 Right lower quadrant abdominal pain (ICD-10 - R10.31) Pt scheduled for CT of abd tomorrow 10-17 at [facility] at 1100. 10/17/2022 Left flank discomfort (ICD-10 - R10.9) 10/20/2022 Right lower quadrant abdominal pain (ICD-10 - R10.31) 10/22/2022 Hydronephrosis, unspecified hydronephrosis type (ICD-10 - N13.30) 11/12/2022 Right lower quadrant abdominal pain (ICD-10 - R10.31) 01/19/2023 Yeast infection (ICD-10 - B37.9) 01/19/2023 Constipation (ICD-10 - K59.00) 01/30/2023 Constipation (ICD-10 - K59.00) 02/02/2023 Hemorrhoids (ICD-10 - K64.9) Continue MiraLax and hydrocortisone cream and suppositories as needed. 02/04/2022 History of anemia (ICD-10 - Z86.2) 02/04/2022 Other Venipuncture performed. Left arm. One attempt. Pt tolerated well, bleeding controlled with light dressing. 10/16/2022 Other Venipuncture performed. Right arm. One attempt. Pt tolerated well, bleeding controlled with light dressing. PLAN OF TREATMENT Next Appt Details Provider Name:Nithya Coon acosta, 03/30/2023 02:30:00 PM, [address], [place], [address], Insurance Providers Payer Name Payer Address Payer Phone Subscriber Number Group Number Insured Name Patient Relationship to Insured Coverage Start Date Coverage End Date [employer] [place] [address] [place] [address] [id number] Salome Melendez Self - patient is the insured MEDICATIONS ADMINISTERED Medication Instructions Date of Administration Dosage Notes dexAMETHasone 10/15/2021 8 mg dexAMETHasone 04/01/2021 8 mg dexAMETHasone 06/05/2022 8 mg [id number] 230-30 Patient tolerated well Ketorolac Tromethamine 10/16/2022 60 mg nd [id number] Patient tolerated well. MEDICAL (GENERAL) HISTORY Surgical History Surgery Date(Month/Year) cholecystectomy section
[2023-02-03] MEDS: scopolamine 1.5 Patch 1 PATCH TRANSDERMA (11:17)
[2023-02-03] MEDS: sodium chloride 0.9% 1,000 ML 30 ML IV (11:18)
[2023-02-03] MEDS: famotidine 20 mg/2 mL INJ IVP (11:37)
[2023-02-03] MEDS: sodium chloride 0.9% 500 ML IV (11:37)
[2023-02-03 11:43] LABS: Basophils % 0.5 %; Eosinophils # 0.2 10^3/uL (0.0-0.8); Eosinophils % 3.1 %; Hematocrit 43.4 % (36-47); Lymphocytes # 1.4 10^3/uL (0.8-4.8); Lymphocytes % 18.4 %; Mean Corpuscular HGB Conc 33.6 g/dL (30-55); Mean Corpuscular Hemoglobin 27.2 pg (27-33); Mean Corpuscular Volume 80.8 fl (85-98); Monocytes # 0.4 10^3/uL (0.2-0.9); Monocytes % 4.6 %; Neutrophils # 5.59 10^3/uL (1.8-7.7); Neutrophils % 72.9 %; Nucleated Red Blood Cells % 0 %; Platelet Count 199 10^3/cmm (157-399); Red Blood Count 5.37 10^6/uL (3.85-5.65); Red Cell Distribution Width 13.6 % (12.1-15.1); White Blood Count 7.67 10^3/uL (3.29-11.43)
--- NOTE | 2023-02-03 12:00 | W.PM.OPSUD ---
Surgery/Procedure H&P Update DATE OF PROCEDURE: February 03, 2023 DATE H&P PERFORMED: 02/02/23 H&P UPDATE INFORMATION: I have reviewed H&P completed within last 30 days, I have examined patient prior to procedure and No changes to prior documentation PREOP DIAGNOSIS: Desire permanent sterilization, chronic pelvic pain PLANNED PROCEDURE: Operation Date: 02/03/23 12:20 Proposed Procedures p Laparoscopic bilateral salpingectomy 01990,Z30.2(Bilateral) - Rashaad Villalpando MD
[2023-02-03 12:09] LABS: OR HCG Qualitative Urine Negative (Negative)
[2023-02-03 12:10] LABS: Alanine Aminotransferase 20 U/L (0-33); Albumin Level 4.5 g/dL (3.5-5.2); Alkaline Phosphatase 83 U/L (35-105); Blood Urea Nitrogen 10 mg/dL (6-20); Calcium 9.7 mg/dL (8.5-10.5); Carbon Dioxide 24 mmol/L (22-29); Chloride 107 mmol/L (98-107); Globulin 3.5 g/dL (1.3-4.6); Glomerular Filtration Rate 118.2 mL/min (90-130); Glucose 98 mg/dL (65-115); Osmolality Calculated 295 mOsm/kg (285-295); Sodium 143 mmol/L (136-145); Total Bilirubin 0.3 mg/dL (0.15-1.2)
[2023-02-03 12:11] LABS: Add Urine Microscopic? YES; Bilirubin Urine Neg (Negative); Blood Urine 2+ (Negative); Glucose Urine UA Norm (Normal); Ketones Urine Negative (Negative); Leukocyte Esterase Urine Trace (Negative); Nitrate Urine Negative (Negative); Protein Urine Neg (Negative); Urine Appearance Cloudy (CLEAR); Urine Color Light yellow (Yellow); Urobilinogen Urine Norm (Negative); pH Urine 5 (5-7)
[2023-02-03 12:30] LABS: Bacteria Urine TRACE /hpf; Mucus Urine TRACE /hpf; RBC Urine 0-4 /hpf (0-2); Squamous Epithelial Cell Urine 15-25 /hpf (0-5)
[2023-02-03 12:31] LABS: Add Urine Culture? No
[2023-02-03 12:37] LABS: Anion Gap 16.3 (5-19); Aspartate Amino Transferase 24 U/L (0-32); Potassium 4.3 mmol/L (3.5-5.1)
[2023-02-03] MEDS: citric acid-sodium citrate 30 mL UDC PO (12:48)
[2023-02-03] MEDS: midazolam 1 mg/mL INJ 2 mL 2 MG IVP (12:48)
[2023-02-03] MEDS: HYDROmorphone 1 mg/mL INJ 1 mL 0.5 MG IVP (12:48)
[2023-02-03] MEDS: ceFAZolin 2,000 MG in sodium chloride 0.9% (plus) 50 ML 100 MG IV (13:24)
[2023-02-03] MEDS: BUPivacaine 0.5% INJ 10 mL INJECTION (13:51)
--- NOTE | 2023-02-03 13:54 | P.ANESUD_ITS ---
Pre-Anesthetic Update Pre-Anesthetic Assessment: Date of Surgery/Procedure: 02/03/23 Preop Qing gnosis: Desire permanent sterilization, chronic pelvic pain Proposed Procedure: Operation Date: 02/03/23 12:20 Proposed Procedures p Laparoscopic bilateral salpingectomy 55874,Z30.2(Bilateral) - Rashaad Villalpando MD Any changes to Pre-Anesthetic Assessment?: No Last Intake: Intake Last Liquid Date 02/02/23 Last Liquid Time 20:30 Last Solid Date 02/02/23 Last Solid Time 20:30 Labs Last 48hrs: Short CBC 02/02/23 02/03/23 Range/Units 10:00 11:07 WBC 5.93 7.67 (3.29-11.43) 10^ 3/uL Hgb 13.80 14.60 (11.27-16.99) g/ dL Hct 40.9 43.4 (36-47) % MCV 82.0 L 80.8 L (85-98) fl Plt Count 170 199 (157-399) 10^3/c mm Neut % (Auto) 60.5 72.9 % Neut # (Auto) 3.59 5.59 (1.8-7.7) 10^3/u L BMP 02/03/23 11:07 Sodium 143 Potassium 4.3 Chloride 107 Carbon Dioxide 24 BUN 10 Creatinine 0.6 Glucose 98 Calcium 9.7 Liver Function 02/03/23 Range/Units 11:07 Total Bilirubin 0.3 (0.15-1.2) mg/dL AST 24 (0-32) U/L ALT 20 (0-33) U/L Alkaline Phosphata se 83 (35-105) U/L Albumin 4.5 (3.5-5.2) g/dL Urine 02/03/23 Range/Units 11:07 Urine Color Light yellow (Yellow) Urine Appearance Cloudy A (CLEAR) Urine pH 5 (5-7) Ur Specific Gravit y 1.010 (1.005-1.030) Urine Protein Neg (Negative) Urine Glucose (UA) Norm (Normal) Urine Ketones Negative (Negative) Urine Nitrate Negative (Negative) Urine Bilirubin Neg (Negative) Ur Leukocyte Leanna ase Trace H (Negative) Urine RBC 0-4 H (0-2) /hpf Urine WBC 10-15 H (0-5) /hpf Blood Bank 02/03/23 11:07 Blood Type A Negative Rho(D) Type Negative Antibody Screen Negative Vitals: Temperature 97 F L 02/03/23 10:43 Temperature Source Temporal Artery S can 02/03/23 10:43 Pulse Rate 104 H 02/03/23 10:43 Pulse Rhythm Regular 02/03/23 10:58 Pulse Strength 3+ Normal 02/03/23 10:58 Respiratory Rate 18 02/03/23 10:43 Blood Pressure 136/89 02/03/23 10:43 Blood Pressure Kady n 104 02/03/23 10:43 Pulse Oximetry 96 02/03/23 10:43 Oxygen Delivery Me thod Room Air 02/03/23 10:58 Exam: Pre-Anes Outpt Exam: alert, oriented x 3, clear to auscultation bilaterally and regular rate & rhythm Cardiac Studies: No Data to Display
--- NOTE | 2023-02-03 14:31 | PM.OP ---
Operative Report Date of procedure: February 03, 2023 Pre-op diagnosis: Desire permanent sterilization Pelvic pain Dysmenorrhea Dyspareunia Post-op diagnosis: Same as above Mild endometriosis Procedure done: Laparoscopic bilateral salpingectomy Diagnostic laparoscopy Fulguration of endometriosis lesions Specimens removed/disposition: Left and right fallopian tubes Surgeon: Rashaad Villalpando MD Estimated blood loss (mL): 5 IV fluids (mL): 700 Urine output (mL): 400 Procedure: After informed consent, the patient was taken to the operating room where general anesthesia was administered. She was placed in the dorsal lithotomy position and prepped and draped in sterile fashion. Pre-Procedure Time-Out verifying the correct patient identity, correct procedure verified with consent, correct site and side, correct patient position, availability of correct implants and any special equipment or requirements was performed and acknowledge by the OR team. The patient was examined under anesthesia and found to have a normal uterus with normal adnexa. A weighted speculum was placed in the vagina, and the anterior lip of cervix was grasped with the single toothed tenaculum. A uterine manipulator was advanced into the endocervical canal and uterus. The tenaculum was removed after uterine manipulator was secured. The speculum was removed from the vagina. An intraumbilical incision was made with a scalpel. While tenting up on the abdomen, a Verres needle was admitted into the intra-abdominal cavity. A saline drop test was performed and noted to be within normal limits. Pneumoperitoneum was attained with 4 liters of carbon dioxide. The Verres needle was removed. A 5 mm Opitc view trocar and sleeve were admitted into the abdomen and laparoscopic confirmation of location was achieved. A second incision was made 3 cm above the symphysis pubis, and a 5 mm trocar sleeves were admitted into the abdomen under direct laparoscopic visualization without complication. A survey revealed normal abdominal anatomy. A 5 mm blunt probe was advanced through the second trocar sleeve, and light manipulation of ovaries and uterus to assess the posterior aspects was performed. The pelvic survey shows normal uterus, left and right adnexa and and endometriosis lesion on the left round ligament, right posterior uterine surface, left uterosacral ligament and in the cul-de-sac. The left ovary was noted with a follicular cyst. The endometriosi lesions were fulgurated with the Ligasure blunt tipped laparoscopic device. The patient was placed into Trendelenburg position. The fallopian tubes were inspected bilaterally and the fimbriated ends of the fallopian tubes were visualized bilaterally. Attention was then directed to the right side. The fallopian tube and mesosalpinx were grasped and the underlying mesosalpinx was cauterized and cut using the Ligasure device. Serial grasping, cauterization/sealed and cutting was used to separate the fallopian tube from the underlying mesosalpinx until it could be amputated cutting it approximated 2 cm from the cornua. Attention was then turned to the contralateral fallopian tube, which was removed in similar fashion. Both specimens were removed through the trocar and sent to pathology. The instruments were removed. The suprapubic trocar port was removed under direct visualization insuring good hemostasis. The carbon dioxide was allowed to escape from the abdomen. The intraumbilical trocar sleeve was withdrawn under visualization with laparoscope in the sleeve to insure hemostasis. The skin incisions were closed with 3-O Monocryl subcuticular stich and Dermabond. The instruments were removed from the vagina, and excellent hemostasis was noted. The patient tolerated the procedure well, and sponge, lap and needle count were correct times two. The patient was taken to the recovery room in good condition.
[2023-02-03] MEDS: HYDROcodone-acetaminophen 5-325 mg Tablet 1 TAB PO (15:29)
--- NOTE | 2023-02-03 17:11 | ANE.PACU2 ---
Inpatient post-anesthesia follow up: Airway intact: Yes Vital signs: Temperature 97.5 F Pulse Rate 76 Respiratory Rate 16 Blood Pressure 122/56 Pulse Oximetry 98 Oxygen Delivery Me thod Room Air Oxygen Flow Rate Fraction of Inspir ed Oxygen Hydration adequate: Yes Nausea and vomiting: No Pain level: 3 Mental status: Baseline
== END 2023-02-03 16:15 | disposition home or self-care (01) ==
PROVIDERS: Anesthesiology; PCP Nurse Practitioner Family; Visit Provider Obstetrics & Gynecology
PROC: (CPT 58661; principal; 2023-02-03 12:10)
DX: Z30.2 Encounter for sterilization (principal)
CPT/HCPCS: 58661; 36415; 80053; 81001; 84703; 85025; 86850; 86900; 88302; J0690; J1100; J1170; J1885; J2250; J2405; J2710; J3010; J3490; J7030; J7040

== ENCOUNTER 2023-03-18 08:26 | Day surgery (SDC) | payer BC, SELFPAY ==
--- OUTSIDE RECORDS SUMMARY | 2023-03-18 08:28 | XMS_ITS | Patient Health Record ---
Author Name Unknown Organization [facility] Address [address] [place] [address] Care Team Providers Care Registered Diet Technician Name Role Phone Kristie Stewart Primary Care Provider KRISTIE STEWART Unavailable Unavailable Nithya Bee Unavailable [phone] KnightAnne Unavailable [phone] ALLERGIES No Known Allergies RESULTS Component Value Reference Range Notes KUB Reviewed date:07/28/2022 03:30:14 PM Interpretation: Performing Lab: Notes/Report: CBC w\ Auto Diff [id number] Reviewed date:10/20/2022 07:40:22 AM Interpretation: Performing Lab: [...] 42.0-75.0 % Lymph Auto% 33.0 20.0-51.0 % Calloway Auto% 8.4 1.7-9.3 % Eos Auto% 5.3 .0-6.0 % Baso Auto% 0.7 0.0-1.0 % Imm Gran% .4 .0-.4 % Neutro Abs 3.56 .80-7.70 Absolute Neutrophil Count 3560 Lymph Abs 2.25 .10-4.10 Calloway Abs .57 .20-1.00 Eos Abs .36 .00-.40 Baso Abs .05 .00-.10 Imm Gran Abs .03 .00-.10 NRBC# .00 .00-.20 X10'3 NRBC% .00 .00-.20 /100 intact WBC's Urinalysis--[id number] Reviewed date:10/16/2022 04:14:42 PM Interpretation: Performing Lab: Notes/Report: Normal UA Specific gravity UA 1.020 Urine Nitrite negative Color UA yellow Urine Blood negative Clarity UA clear Urine pH 6.0 Urine Glucose negative Urine Leukocyte negative Urine Protein negative Urine Bilirubin negative Urine Ketone negative Urobilinogen CT Abdomen, Pelvis w/ Contra st-[id number] Reviewed date:10/20/2022 11:41:15 AM Interpretation: Performing Lab: Notes/Report: Urinalysis--[id number] Reviewed date:01/19/2023 04:12:31 PM Interpretation: Performing Lab: Notes/Report: Normal UA Specific gravity UA 1.020 Urine Nitrite negative Color UA yellow Urine Blood negative Clarity UA cloudy Urine pH 6.0 Urine Glucose negative Urine Leukocyte negative Urine Protein negative Urine Bilirubin negative Urine Ketone negative Urobilinogen US Pelvis Transvaginal-[id number] Reviewed date:11/04/2022 08:49:36 AM Interpretation: Performing Lab: Notes/Report: REASON FOR REFERRAL Reason hydronephrosis, hors eshoe kidney Diagnosis 1 Hydronephrosis, unsp ecified hydronephrosis type (N13.30) Referring Provider First Name Kristie Referring Provider Last Name Terry Referring Provider Speciality Nurse Prac nay Referred Organization [facility] Referred Provider Nithya Bee Referred Address [address], [place], [place],[address], Referred Provider Specialty Nurse Liu holley Referral Priority Routine Reason hydronephrosis, hors eshoe kidney Diagnosis 1 Hydronephrosis, unsp ecified hydronephrosis type (N13.30) Referral Organization [facility] Referring Provider First Name Kristie Referring Provider Last Name [facility] Referring Provider Speciality Nurse Prac nay Referred Provider Charly Garcia Referred Provider Specialty Nephrology General Notes Melisa Greenberg 10/23 07:01:57 AM >P2P sent Referral Priority Routine Reason Hemorroids Diagnosis 1 Hemorrhoids (K64.9) Referral Organization [facility] Referring Provider First Name Kristie [facility] Referring Provider Speciality Nurse Briana tee Referred Provider John Tan Referred Provider Specialty General Surg gerhard General Notes MicahperfectodeneenMelisa 02/02 03:04:07 PM >faxed to Dr Tan office Referral Priority Routine MEDICATIONS Medication SIG (Take, Route, Frequency, Duration) Notes Start Date End Date Status Polyethylene Glycol 3350 17 GM 1 packet mixed with 8 ounces of fluid Orally Once a day as needed for 30 days 01/19/2023 05/18/2023 Active Cetirizine HCl 10 MG TAKE 1 TABLET BY [facility] EVERY DAY for 90 Active SOCIAL HISTORY Tobacco Use: Social History [...] W/U Status Risk SNOMED Code Notes Problem Vitamin D deficiency (E55.9) Active confirmed 78805887 Problem Sinusitis (J32.9) Active confirmed Sinusitis (55049834) Problem Moderate persistent asthma without complication (J45.40) Active confirmed 493850802 Problem History of anemia (Z86.2) Active confirmed 318830380 Problem Constipation (K59.00) Active confirmed Constipation (48819159) Problem Seasonal allergies (J30.2) Active confirmed 867442160 Problem Moderate persistent asthma with exacerbation (J45.41) Active confirmed 490239922 Problem 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) Active confirmed 55574564 VITAL SIGNS Heart Rate 73 /min 02/02/2023 Temperature 98.2 degrees Fahrenheit 02/02/2023 Respiratory Rate 20 /min 02/02/2023 Blood pressure diastolic 76 mm Hg 02/02/2023 Oximetry 100 % 02/02/2023 Height-cm 160.02 cm 02/02/2023 Weight-kg 89.36 kg 02/02/2023 Height 63 in 02/02/2023 Blood pressure systolic 118 mm Hg 02/02/2023 Weight 197 lbs 02/02/2023 BMI 34.89 kg/m2 02/02/2023 Encounters Encounter Location Date Provider Diagnosis [facility] [address] [facility] [address] [place] [address] 05/23/2022 Kristie Stewart [facility] [address] [facility] [address] [place] [address] 07/18/2022 [facility] [address] [facility] [place] [address] 10/17/2022 Kristie Stewart Left flank discomfor t R10.9 [facility] [address] [place] [address] 10/20/2022 Kristie Stewart Right lower quadrant abdominal pain R10.31 [facility] [address] [place] [address] 10/21/2022 Kristie Stewart [facility] [address] [place] [address] 10/22/2022 Kristie Stewart Hydronephrosis, unspecified hydronephrosis type N13.30 [facility] [place] [address] [place] [address] 10/29/2022 [facility] [place] [address] [place] [address] 11/12/2022 Kristie Stewart Right lower quadrant abdominal pain R10.31 [facility] [place] [address] [place] [address] 01/26/2023 Kristie [facility] [place] [address] [place] [address] 01/30/2023 Anne Knight Constipation K59.00 [facility] [place] [address] [place] [address] 12/15/2022 Kristie [facility] [address] [place] [address] 12/18/2022 Kristie Stewart [facility] [address] [place] [address] 01/13/2023 Kristie [facility] [address] [place] [address] 01/15/2023 Nithya Bee [facility] [place] [facility] [address] [place] [address] 06/05/2022 Kristie Stewart Sinusitis J32.9 and control Z78.9 [facility] [place] [facility] [address] [place] [address] 07/24/2022 Kristie Stewart UTI (urinary tract infection) N39.0 and Hematuria R31.9 [facility] [place] [facility] [address] [place] [address] 10/16/2022 Kristie Stewart Right lower quadrant abdominal pain R10.31 [facility] [place] [address] [place] [address] 11/04/2022 [facility] [address] [address] 01/19/2023 Kristie Stewart Constipation K59.00 and Yeast infection B37.9 [facility] [address] [address] 02/02/2023 Kristie Stewart Hemorrhoids K64.9 [facility] [address] [address] 10/29/2022 Kristie Stewart ASSESSMENTS Encounter Date Diagnosis Assessment Notes Treatment Notes Treatment Clinical Notes 06/05/2022 Sinusitis (ICD-10 - J32.9) Increase fluids, take medication as directed. RTC if no improvement with treatment. 06/05/2022 control (ICD-10 - Z78.9) 07/24/2022 UTI (urinary tract infection) (ICD-10 - N39.0) Increase fluids, take medication as directed. RTC if no improvement with treatment. 07/24/2022 Hematuria (ICD-10 - R31.9) Pt will go to [facility] for KUB in am. 10/16/2022 Right lower quadrant abdominal pain (ICD-10 - R10.31) Pt scheduled for CT of abd tomorrow 10-17 at [facility] at 1100. 10/17/2022 Left flank discomfort (ICD-10 [...] and hydrocortisone cream and suppositories as needed. 10/16/2022 Other Venipuncture performed. Right arm. One attempt. Pt tolerated well, bleeding controlled with light dressing. PLAN OF TREATMENT Next Appt Details Provider Name:Nithya Coon acosta, 03/30/2023 02:30:00 PM, [address], [place], [address], Insurance Providers Payer Name Payer Address Payer Phone Subscriber Number Group Number Insured Name Patient Relationship to Insured Coverage Start Date Coverage End Date [employer] [place] [address] [place] [address] [id number] Salome Melendez Self - patient is the insured MEDICATIONS ADMINISTERED Medication Instructions Date of Administration Dosage Notes dexAMETHasone 10/15/2021 8 mg dexAMETHasone 04/01/2021 8 mg dexAMETHasone 06/05/2022 8 mg [id number] 230-30 Patient tolerated well Ketorolac Tromethamine 10/16/2022 60 mg nd [id number] Patient tolerated well. MEDICAL (GENERAL) HISTORY Surgical History Surgery Date(Month/Year) cholecystectomy section
--- NOTE | 2023-03-18 08:29 | W.PM.OPSUD ---
Surgery/Procedure H&P Update DATE OF PROCEDURE: March 18, 2023 DATE H&P PERFORMED: 02/17/23 H&P UPDATE INFORMATION: I have reviewed H&P completed within last 30 days, I have examined patient prior to procedure and No changes to prior documentation PLANNED PROCEDURE: Operation Date: 03/18/23 08:30 Proposed Procedures p 52112 EGD 87758 Colononsocpy R10.13,K21.9,K92.1(Not Applicable) - DO rut Pereyra Colonoscopy(Not Applicable) - John Tan DO
[2023-03-18 08:40] VITALS: BP 134/77; PULSE 89; RESP 16; TEMP 36.2; O2SAT 99; BMI 35.4
--- NOTE | 2023-03-18 08:47 | P.ANESASSM_ITS ---
Pre-Anesthetic Assessment Height/Weight: Height 1.57 m Weight 87.997 kg Temp Pulse Resp BP Pulse Ox O2 Del Method 97.1 F L 89 16 134/77 99 Room Air 03/18/23 08:40 03/18/23 08:40 03/18/23 08:40 03/18/23 08:40 03/18/23 08:40 03/18/23 08:40 Preop Diagnosis: abd pain/screening Operation Date: 03/18/23 08:30 Proposed Procedures p 52589 EGD 58191 Colononsocpy R10.13,K21.9,K92.1(Not Applicable) - John Tan DO s Colonoscopy(Not Applicable) - John Tan DO Was Beta Terrie taken within 24 hours: N/A Last intake: Intake Last Liquid Date 03/17/23 Last Liquid Time 22:00 Last Solid Date 03/16/23 Last Solid Time 18:00 Social No alcohol and No tobacco Exam oriented x 3 Airway Submandibular: within normal limits Cervical ROM: within normal limits Mallampati: Class II Dentition: full (denies chips or loose) History/ROS No significant history except as noted Pulmonary Asthma (seasonal allergies/last used 03/17) CV/HEM None reported None reported Hepatic None reported GI Gastroesophageal Reflux Disease Metabolic None reported Musc/skel None reported Neuropsych None reported Anesthetic Plan ASA status: 2 Anesthesia: MAC Medications/Allergies Home Medications Medication Instructions Recorded Confirmed Last Taken Type albuterol sulfate 90 mcg/actuation 2 puff inhalation Q6H PRN 10/22/22 03/18/23 03/15/23 History aerosol inhaler Shortness Of Breath montelukast 10 mg tablet 10 mg PO BEDTIME 10/22/22 03/18/23 03/16/23 History cetirizine 10 mg tablet 10 mg PO DAILY Allergy Symptoms 02/02/23 03/18/23 03/16/23 History hydrocortisone 2.5 % topical cream 1 applic [place] QID hemorrhoids 3 02/17/23 03/18/23 03/16/23 Rx with perineal applicator weeks #30 grams (Anusol-HC) pantoprazole 40 mg tablet,delayed 40 mg PO BID 6 weeks #84 tabs 02/17/23 03/18/23 03/16/23 Rx release (Protonix) acetaminophen 500 mg tablet 500 mg PO Q6H PRN Pain 03/16/23 03/18/23 03/16/23 History Allergies Allergy/AdvReac Type Severity Reaction Status Date / Time Alpha-Gal Allergy Severe ALGY-Anaphy Verified 02/17/23 08:14 (Vloycbspk-Hipof-7,3-Gala laxis Pork/Porcine Containing Allergy Severe ALGY-Anaphy Verified 02/17/23 08:14 Products laxis [facility] Anesthesia Medical History (Updated 02/18/23 @ 17:44 by Марина Varner APN, FARHANA) Asthma COOPER III (cervical intraepithelial neoplasia III) 05/2015: COOPER 3 - Treated by cervical cone (possibly LEEP) per patient. 11/20/2016: Patient reports having had a follow-up pap smear at approx 6 months after treatment. She is unsure of the results. Plan pap smear after delivery. Contraception management She was counseled regarding again missed AB and all treatment modalities. Was counseled hCG continue to decrease and she declined any bleeding. Patient elected expectant/conservative management. Quantitative hCG now negative. Patient refers she wants to start using OCPs. She was counseled regarding all methods of contraception. She wants to proceed start using OCPs she was counseled regarding starting OCPs. Follow-up in 3 months Endometriosis determined by laparoscopy (~01/2023) noted on left round ligament, right posterior uterine surface,left uterosacral ligament, cul-de-sac. Patient denies medical problems Denies history of: high blood pressure, diabetes, heart, lung, liver, kidney, thyroid, bleeding problems, or clotting problems Sickle cell anemia (~2009) Surgical History (Updated 02/18/23 @ 14:10 by Марина Varner APN, FARHANA) H/O section 08/13/2020- repeat delivery, performed by Dr. Villalpando at [facility] History of cholecystectomy (~2015) History of dilation and curettage (~05/2015) Performed at time of cervical cone per patient. Performed in [facility] History of salpingectomy (~02/03/23) Laparoscopic bilateral salpingectomy with fulguration of endometriosis lesions--noted on left round ligament, right posterior uterine surface,left uterosacral ligament, cul-de-sac. Performed by Kwasi at [facility]. Previous section (~04/2017) Family History Grandmother Hyperlipidemia Maternal Hypertension Maternal Diabetes Maternal Breast cancer Maternal Grandfather Diabetes paternal Colon cancer Maternal Family/Other Breast cancer Paternal aunt, paternal cousin Patient denies medical problems Denies family history of: heart disease, stroke, thyroid problems, ovarian cancer, or uterine cancer Social History Substance/Drug Use: never Additional social history: - Tobacco use: Denies Alcohol use: Denies Drug use: Denies Female Reproductive History Date of last menstrual period: 02/25/23 Data Anesthesia Cardiac Studies: No Data to Display
[2023-03-18] MEDS: sodium chloride 0.9% 1,000 ML 30 ML IV (08:58)
[2023-03-18 09:02] LABS: OR HCG Qualitative Urine Negative (Negative)
[2023-03-18 09:29] VITALS: BP 106/84; PULSE 84; RESP 20; TEMP 36.4; O2SAT 97
[2023-03-18 09:42] VITALS: BP 123/82; PULSE 76; RESP 16; O2SAT 97
--- NOTE | 2023-03-18 09:49 | ANES.PREANE2 ---
Pre-Anesthetic Assessment Height/Weight: Height 1.57 m Weight 87.997 kg Temp Pulse Resp BP Pulse Ox O2 Del Method 97.6 F 84 20 H 106/84 97 Room Air 03/18/23 09:29 03/18/23 09:29 03/18/23 09:29 03/18/23 09:29 03/18/23 09:29 03/18/23 09:29 Preop Diagnosis: abd pain/screening Operation Date: 03/18/23 08:30 Proposed Procedures p 70760 EGD 81634 Colononsocpy R10.13,K21.9,K92.1(Not Applicable) - John Tan DO s Colonoscopy(Not Applicable) - John Tan DO Was Beta Terrie taken within 24 hours: N/A Last intake: Intake Last Liquid Date 03/17/23 Last Liquid Time 22:00 Last Solid Date 03/16/23 Last Solid Time 18:00 Social Tobacco 1 pack(s) per day 20 pack years Medications/Allergies Home Medications Medication Instructions Recorded Confirmed Last Taken Type albuterol sulfate 90 mcg/actuation 2 puff inhalation Q6H PRN 10/22/22 03/18/23 03/15/23 History aerosol inhaler Shortness Of Breath montelukast 10 mg tablet 10 mg PO BEDTIME 10/22/22 03/18/23 03/16/23 History cetirizine 10 mg tablet 10 mg PO DAILY Allergy Symptoms 02/02/23 03/18/23 03/16/23 History hydrocortisone 2.5 % topical cream 1 applic IN QID hemorrhoids 3 02/17/23 03/18/23 03/16/23 Rx with perineal applicator weeks #30 grams (Anusol-HC) pantoprazole 40 mg tablet,delayed 40 mg PO BID 6 weeks #84 tabs 02/17/23 03/18/23 03/16/23 Rx release (Protonix) acetaminophen 500 mg tablet 500 mg PO Q6H PRN Pain 03/16/23 03/18/23 03/16/23 History Allergies Allergy/AdvReac Type Severity Reaction Status Date / Time Alpha-Gal Allergy Severe ALGY-Anaphy Verified 02/17/23 08:14 (Ketjuisox-Kocqx-5,3-Gala laxis Pork/Porcine Containing Allergy Severe ALGY-Anaphy Verified 02/17/23 08:14 Products laxis Current Medications Generic Name Dose Route Start Last Admin Trade Name Jose PRN Reason Stop Dose Admin Sodium Chloride 1,000 mls @ 30 mls/hr 03/18/23 08:30 03/18/23 09:33 Sodium Chloride 0.9% IV 03/19/23 08:29 Infused .Q24H SPARKLE Infusion PFSH Anesthesia Medical History (Updated 02/18/23 @ 17:44 by Марина Varner APN, FARHANA) Asthma COOPER III (cervical intraepithelial neoplasia III) 05/2015: COOPER 3 - Treated by cervical cone (possibly LEEP) per patient. 11/20/2016: Patient reports having had a follow-up pap smear at approx 6 months after treatment. She is unsure of the results. Plan pap smear after delivery. Contraception management She was counseled regarding again missed AB and all treatment modalities. Was counseled hCG continue to decrease and she declined any bleeding. Patient elected expectant/conservative management. Quantitative hCG now negative. Patient refers she wants to start using OCPs. She was counseled regarding all methods of contraception. She wants to proceed start using OCPs she was counseled regarding starting OCPs. Follow-up in 3 months Endometriosis determined by laparoscopy (~01/2023) noted on left round ligament, right posterior uterine surface,left uterosacral ligament, cul-de-sac. Patient denies medical problems Denies history of: high blood pressure, diabetes, heart, lung, liver, kidney, thyroid, bleeding problems, or clotting problems Sickle cell anemia (~2009) Surgical History (Updated 02/18/23 @ 14:10 by Марина Varner APN, FARHANA) H/O section 08/13/2020- repeat delivery, performed by Dr. Villalpando at [facility] History of cholecystectomy (~2015) History of dilation and curettage (~05/2015) Performed at time of cervical cone per patient. Performed in [facility] History of salpingectomy (~02/03/23) Laparoscopic bilateral salpingectomy with fulguration of endometriosis lesions--noted on left round ligament, right posterior uterine surface,left uterosacral ligament, cul-de-sac. Performed by Kwasi at [facility]. Previous section (~04/2017) Family History Grandmother Hyperlipidemia Maternal Hypertension Maternal Diabetes Maternal Breast cancer Maternal Grandfather Diabetes paternal Colon cancer Maternal Family/Other Breast cancer Paternal aunt, paternal cousin Patient denies medical problems Denies family history of: heart disease, stroke, thyroid problems, ovarian cancer, or uterine cancer Social History Substance/Drug Use: never Additional social history: - Tobacco use: Denies Alcohol use: Denies Drug use: Denies Female Reproductive History Date of last menstrual period: 02/25/23 Data Anesthesia Cardiac Studies: No Data to Display
--- NOTE | 2023-03-18 10:14 | ANE.PACU2 ---
Inpatient post-anesthesia follow up: Airway intact: Yes Vital signs: Temperature 97.6 F Pulse Rate 76 Respiratory Rate 16 Blood Pressure 123/82 Pulse Oximetry 97 Oxygen Delivery Me thod Room Air Oxygen Flow Rate Fraction of Inspir ed Oxygen Hydration adequate: Yes Nausea and vomiting: No Pain level: 2 Mental status: Baseline
== END 2023-03-18 10:21 | disposition home or self-care (01) ==
PROVIDERS: Anesthesiology; PCP Nurse Practitioner Family; Visit Provider Surgery
PROC: 0DJ08ZZ Inspection of Upper Intestinal Tract, Via Natural or Artificial Opening Endoscopic (ICD-10-PCS; CPT 43235; principal; 2023-03-18 08:30)
PROC: 0DJD8ZZ Inspection of Lower Intestinal Tract, Via Natural or Artificial Opening Endoscopic (ICD-10-PCS; CPT 45378; 2023-03-18 08:30)
DX: K92.1 Melena (principal); R10.13 Epigastric pain; K21.9 Gastro-esophageal reflux disease without esophagitis; K29.50 Unspecified chronic gastritis without bleeding; K64.8 Other hemorrhoids
CPT/HCPCS: 43239; 45378; 76937; 81025; 84703; 88305; 88342; J2704; J3010; J7030

== ENCOUNTER → 2023-09-16 11:23 | Outpatient (BNVA) | payer BC, SELFPAY | PROVIDERS: PCP Nurse Practitioner Family; Visit Provider Obstetrics & Gynecology | DX: R10.2 Pelvic and perineal pain (principal); G89.29 Other chronic pain | CPT/HCPCS: 76830; 76856 ==

== ENCOUNTER 2024-11-24 15:30 | Oncology outpatient (recurring) (ONCR) | payer BC, SELFPAY ==
[2024-11-17] MEDS: ferric carboxy (PYXIS) 750 MG in sodium chloride 0.9% (100 ml) 100 ML 345 MG IV (15:50)
[2024-11-17 16:39] VITALS: BP 122/73; PULSE 79; RESP 16; TEMP 36.7; O2SAT 98
[2024-11-24] MEDS: ferric carboxy (PYXIS) 750 MG in sodium chloride 0.9% (100 ml) 100 ML 345 MG IV (15:36)
[2024-11-24 16:01] VITALS: BP 118/77; PULSE 90; TEMP 36.3; O2SAT 98
== END 2024-11-24 23:59 | disposition home or self-care (01) ==
PROVIDERS: PCP Nurse Practitioner Family; Visit Provider Internal Medicine Medical Oncology
DX: D50.9 Iron deficiency anemia, unspecified (principal)
CPT/HCPCS: 96365; J1439; J7050

== ENCOUNTER 2025-01-17 12:19 | Oncology outpatient (recurring) (ONCR) | payer BC, SELFPAY ==
[2025-01-17 12:50] LABS: Hematocrit 43.6 % (36-47); Hemoglobin 14.80 g/dL (11.27-16.99); Mean Corpuscular HGB Conc 33.9 g/dL (30-55); Mean Corpuscular Hemoglobin 27.6 pg (27-33); Mean Corpuscular Volume 81.3 fl (85-98); Nucleated Red Blood Cells % 0 %; Platelet Count 218 10^3/cmm (157-399); Red Blood Count 5.36 10^6/uL (3.85-5.65); White Blood Count 8.28 10^3/uL (3.29-11.43)
[2025-01-17 13:12] LABS: Alanine Aminotransferase 19 U/L (0-33); Albumin Level 4.4 g/dL (3.5-5.2); Alkaline Phosphatase 88 U/L (35-105); Anion Gap 12.8 (5-19); Aspartate Amino Transferase 17 U/L (0-32); Blood Urea Nitrogen 8 mg/dL (6-20); Calcium 9.3 mg/dL (8.5-10.5); Carbon Dioxide 27 mmol/L (22-29); Chloride 102 mmol/L (98-107); Ferritin 670 ng/mL (15-150); Globulin 3.1 g/dL (1.3-4.6); Glucose 88 mg/dL (65-115); Iron 65 ug/dL (37-145); Osmolality Calculated 284 mOsm/kg (285-295); Potassium 3.8 mmol/L (3.5-5.1); Sodium 138 mmol/L (136-145); Total Iron Binding Capacity 218 mcg/dl; Total Protein 7.5 g/dL (6.6-8.7); Unsaturated Iron Binding 153 ug/dL (112-347)
[2025-01-17 13:27] LABS: Vitamin B12 405 pg/mL (232-1245)
== END 2025-01-24 23:59 | disposition home or self-care (01) ==
LOC: ONCMED 12:19
PROVIDERS: Internal Medicine Medical Oncology; PCP Nurse Practitioner Family; Visit Provider Nurse Practitioner
DX: D50.9 Iron deficiency anemia, unspecified (principal)
CPT/HCPCS: 36415; 80053; 82607; 82728; 82746; 83540; 83550; 85025